=== PATIENT | male | born 1980 | race American Indian/Alaskan Native ===

== ENCOUNTER 2016-10-11 17:33 | Inpatient (IN) | payer MEDICAID, SELFPAY ==
[2016-10-11] MEDS ORDERED: Promethazine 25 MG/ML SDV IM PRN (19:21)
[2016-10-11] MEDS ORDERED: Ondansetron 4 MG/2 ML SDV IVPUSH PRN (19:21)
[2016-10-11] MEDS ORDERED: Zolpidem 5 MG Tab PO PRN (19:21)
--- NOTE | 2016-10-11 19:37 | PCM.HP ---
H&P History of Present Illness - General Date of Service: 10/11/16 Admit Problem/Dx: Admission Diagnosis/Problem Admission Diagnosis/Problem Colitis Source of Information: Patient History Limitations: Reports: No limitations - History of Present Illness Initial Comments - Free Text/Narative: 36-year-old male with past medical history of chewing tobacco and smoking marijuana presented from the clinic for having generalized abdominal pain for the last 5 days. pain is moderate, colicky, nonradiating, constant, nothing mixed worse or better.Other symptoms are nausea but no vomiting, watery diarrhea. He stated that he gets 7-8 episodes of diarrhea that has some blood and mucus in it. He has been feeling warm and cold. His temperature at the clinic was 100.6 Fahrenheit. patient denies similar abdomen pain in the past. He denies recent travel or antibiotic or NSAIDS intake. he denies chronic disease. He denies any personal or family history of peptic ulcer, Crohn disease , ulcers colitis, GI cancer, or any chronic GI disease. at the clinic his WBC 19.20 with left shift. Hemoglobin 14.4. sodium 136. Potassium 3.8. Random glucose 120. Creatinine 0.9. Alkaline phosphatase is 116. AST 12. ALT 17. Bilirubin 0.5. CT of abdomen and pelvis was done in the clinic and per report: 1.*Uniformly, abnormally, thickened distal large bowel wall (rectum and sigmoid colon with associated mesenteric lymphadenitis). Colitis probable diagnosis. Clinical ulcerative colitis? 2. Normal appendix identified in the right lower quadrant. 3. Gallbladder unremarkable. Normal liver, stomach, spleen, pancreas and adrenal glands. 4. Normal reniform sinus, axis and configuration bilateral. No sign of renal cortical mass lesion, nephrolithiasis or obstructive uropathy. Urinary bladder unremarkable. Normal prostate gland. 5. Normal caliber aortoiliac vessels. Lumbar spine unremarkable. Lung bases are clear. 6. No pelvic or abdominal mass lesion, sign of retroperitoneal lymphadenopathy, mechanical bowel obstruction, ascites or free intraperitoneal air. Conclusion: Active colitis - Related Data Allergies/Adverse Reactions: Allergies Allergy/AdvReac Type Severity Reaction Status Date / Time codeine Allergy Rash Verified 10/11/16 18:31 Home Medications: Home Meds . [No Known Home Meds] 10/11/16 [History] Past Medical History - Past Health History Medical/Surgical History: Denies Medical/Surgical History Social & Family History - Tobacco Use Smoking Status *Q: Current Every Day Smoker Years of Tobacco use: 20 Packs/Tins Daily: 0.5 Used Tobacco, but Quit: No Second Hand Smoke Exposure: Yes - Caffeine Use Caffeine Use: Reports: Coffee, Soda - Alcohol Use Days Per Week of Alcohol Use: 0 - Recreational Drug Use Recreational Drug Use: Yes Drug Use in Last 12 Months: Yes Recreational Drug Type: Reports: Marijuana/Hashish Recreational Drug Use Frequency: Monthly H&P Review of Systems - Review of Systems: Review Of Systems: See Below Free Text/Narrative: 10 point review of systems is otherwise negative except as mentioned above Exam - Exam Exam: See Below - Vital Signs Vital Signs: Last Vital Signs Temp 37.2 C 10/11/16 17:33 Pulse 94 10/11/16 17:33 Resp 16 10/11/16 17:33 BP 134/90 10/11/16 17:33 Pulse Ox 100 10/11/16 17:33 Weight: 65.862 kg - Exam General: alert, oriented, cooperative, mild distress. No: severe distress, sedated, lethargic, obtunded HEENT: Conjunctiva clear, EACs clear, EOMI, Hearing intact, Mucosa moist & pink , Nares patent, Normal nasal septum, Posterior pharynx clear, Pupils equal, Pupils reactive, TMs clear Neck: supple, trachea midline Lungs: Clear to auscultation, Normal respiratory effort Cardiovascular: regular rate, regular rhythm Abdomen: soft, tenderness (generalized). No: organomegaly, peritoneal signs, distention, guarding, rigidity, rebound, absent bowel sounds, hepatomegaly, splenomegaly, mass, McBurney's sign, psoas sign, obturator sign, Rovsing's sign , Oneil's sign, aortic pulsation (Male) Exam: No hernia, Deferred Extremities: normal inspection, normal pulses. No: clubbing, cyanosis, calf tenderness Skin: warm, dry, intact Neurological: cranial nerves intact, reflexes equal bilateral Neuro Extensive - Mental Status: alert, oriented x3, normal mood/affect, normal cognition, memory intact Neuro Extensive - Motor, Sensory, Reflexes: CN II-XII intact, normal gait, normal reflexes Psychiatric: alert, normal affect, normal mood. No: suicidal ideation, homicidal ideation, hallucinations *Q Meaningful Use (ADM) - VTE *Q VTE Criteria *Q: - Stroke *Q Stroke Criteria *Q: - AMI *Q AMI Criteria *Q: - Problem List (1) Colitis SNOMED Code(s): 97560725 ICD Code: K52.9 - NONINFECTIVE GASTROENTERITIS AND COLITIS, UNSPECIFIED Status: Acute Current Visit: Yes (2) SIRS (systemic inflammatory response syndrome) SNOMED Code(s): 904999645 ICD Code: R65.10 - SIRS OF NON-INFECTIOUS ORIGIN W/O ACUTE ORGAN DYSFUNCTION Status: Acute Current Visit: Yes (3) Tobacco abuse SNOMED Code(s): 141471193, 668228913 ICD Code: Z72.0 - TOBACCO USE Status: Acute Current Visit: Yes (4) Marijuana abuse SNOMED Code(s): 77646276 ICD Code: F12.10 - CANNABIS ABUSE, UNCOMPLICATED Status: Acute Current Visit: Yes Problem List Initiated/Reviewed/Updated: Yes Orders Last 24hrs: Active Orders 24 hr Category Date Time Status Patient Status [ADT] Routine ADT 10/11/16 19:21 Ordered Communication Order [RC] ROUTINE Care 10/11/16 19:21 Ordered Intake and Output [RC] Q8H Care 10/11/16 19:22 Ordered Oxygen Therapy [RC] PRN Care 10/11/16 19:21 Ordered Peripheral IV Care [RC] . DIRECTED Care 10/11/16 19:23 Ordered Up ad Tina [RC] ASDIRECTED Care 10/11/16 19:21 Ordered VTE/DVT Education [RC] PER UNIT ROUTINE Care 10/11/16 19:21 Ordered Vital Signs [RC] Q4H Care 10/11/16 19:21 Ordered Nothing per Oral Now Diet [DIET] Diet 10/11/16 Breakfast Ordered BASIC METABOLIC PANEL,BMP [CHEM] AM Lab 10/12/16 05:11 Ordered C-REACTIVE PROTEIN [REF] DAILY Lab 10/11/16 19:30 Ordered CBC WITH AUTO DIFF [HEME] AM Lab 10/12/16 05:11 Ordered CULTURE STOOL [RM] Routine Lab 10/11/16 18:40 Uncollected DRUG SCREEN, URINE [URCHEM] Routine Lab 10/11/16 18:44 Uncollected Acetaminophen/HYDROcodone [[place] 325-10 MG] Med 10/11/16 19:21 Ordered 1 tab PO Q4H PRN Ciprofloxacin in D5W [Cipro in D5W 400 MG/200 ML] 400 Med 10/11/16 21:00 Ordered mg Premix Bag 1 bag IV Q12HR Enoxaparin [Lovenox] Med 10/12/16 09:00 Ordered 30 mg SUBCUT DAILY Morphine Med 10/11/16 19:21 Ordered 2 mg IVPUSH Q2H PRN Ondansetron [Zofran] Med 10/11/16 19:21 Ordered 4 mg IVPUSH Q6H PRN Promethazine [Phenergan] Med 10/11/16 19:21 Ordered 12.5 mg IM Q6H PRN Sodium Chloride 0.9% [Normal Saline] 1,000 ml Med 10/11/16 19:30 Ordered IV ASDIRECTED Sodium Chloride 0.9% [Saline Flush] Med 10/11/16 19:21 Ordered 10 ml FLUSH ASDIRECTED PRN Zolpidem [Ambien] Med 10/11/16 19:21 Ordered 5 mg PO BEDTIME PRN metroNIDAZOLE/Normal Saline [Flagyl 500 MG in NS 100 ML Med 10/11/16 19:30 Ordered ] 500 mg Premix Bag 100 bag IV Q8H Peripheral IV Insertion Adult [OM.PC] Routine Oth 10/11/16 19:21 Ordered Resuscitation Status Routine Resus Stat 10/11/16 19:21 Ordered Assessment/Plan Comment:: Acute colitis, Active colitis per CAT scan of the abdomen/pelvis --Will do stool culture and start ciprofloxacin and Flagyl IV --N.p.o. for diet but okay for sips and chips --IV fluid infusion at 150 cc per hour after receiving 2 L of normal senna as a bolus He was advised that he needs to followup with GI specialist after discharge for possible colonoscopy systemic inflammatory response syndrome Possible sepsis --check lactic acid 2 L of normal saline as a bolus to be given Abdomen pain, from colitis Morphine as needed Nausea, from colitis Antiemetic as needed tobacco abuse and marijuana abuse He was counseled about quitting in seeking outpatient counseling Patient is full code SCDs DVT prophylaxis. avoids pharmaceutical DVT prophylaxis at this time due to having blood in the stool
[2016-10-11] MEDS: Sodium Chloride 0.9% 2,000 ML IV ONE ×2 (19:49→21:53)
[2016-10-11] MEDS: Morphine 2 MG/ML Syringe IVPUSH PRN ×2 (20:21→23:08)
[2016-10-11] MEDS: metroNIDAZOLE/Normal Saline 500 MG in Premix Bag 100 BAG IV SCH (20:26)
[2016-10-11] MEDS: Acetaminophen/HYDROcodone 325-10 MG Tab PO PRN (21:54)
[2016-10-11] MEDS: Ciprofloxacin in D5W 400 MG in Premix Bag 1 BAG IV SCH ×2 (21:55)
[2016-10-11] MEDS: Sodium Chloride 0.9% 1,000 ML IV SCH (23:01)
[2016-10-12] MEDS: metroNIDAZOLE/Normal Saline 500 MG in Premix Bag 100 BAG IV SCH ×2 (03:23→11:47)
[2016-10-12] MEDS: Sodium Chloride 0.9% 1,000 ML IV SCH (06:47)
[2016-10-12] MEDS: Morphine 2 MG/ML Syringe IVPUSH PRN ×5 (06:51→21:41)
[2016-10-12 06:57] LABS: CHLORIDE,CL 107 mmol/L (101-111); SODIUM,NA 138 mmol/L (135-145)
[2016-10-12] MEDS ORDERED: Potassium Chloride 10 MEQ Tab.ER PO ONE (08:25)
[2016-10-12] MEDS ORDERED: Enoxaparin 30 MG/0.3 ML Syringe SUBCUT SCH (09:00)
[2016-10-12] MEDS: Acetaminophen/HYDROcodone 325-10 MG Tab PO PRN ×4 (09:36→23:57)
[2016-10-12] MEDS: Dextrose 5%-0.9% NaCl with KCl 1,000 ML IV SCH ×2 (09:38→21:08)
[2016-10-12] MEDS: Ciprofloxacin in D5W 400 MG in Premix Bag 1 BAG IV SCH ×4 (09:38→21:17)
--- NOTE | 2016-10-12 10:57 | PCM.PN ---
- General Info Date of Service: 10/12/16 Admission Dx/Problem (Free Text): Admission Diagnosis/Problem Admission Diagnosis/Problem Colitis Subjective Update: patient states that he is feeling the same. However he denies nausea or vomiting since admission. He is still having abdominal pain and diarrhea. He had 4 episodes of diarrhea since yesterday. He denies fever or chills, shortness of breath, urinary symptoms, or any other symptoms. - Patient Data Vitals - most recent: Last Vital Signs Temp 36.7 C 10/12/16 10:35 Pulse 83 10/12/16 10:35 Resp 16 10/12/16 10:35 BP 119/69 10/12/16 10:35 Pulse Ox 100 10/12/16 10:35 Weight - most recent: 65.862 kg I&O - last 24 hours: Intake & Output 10/11/16 10/12/16 10/12/16 22:59 06:59 14:59 Intake Total 2300 1182 Balance 2300 1182 Lab Results last 24 hrs: Laboratory Results - last 24 hr 10/11/16 10/11/16 10/11/16 Range/Units 19:45 20:05 23:15 WBC (5.0-10.0) 10^3/uL RBC (4.6-6.2) 10^6/uL Hgb (14.0-18.0) g/dL Hct (40.0-54.0) % MCV (80-100) fL MCH (27.0-34.0) pg MCHC (33.0-35.0) g/dL Plt Count (150-450) 10^3/uL Neut % (Auto) (42.2-75.2) % Lymph % (Auto) (20.5-50.1) % Greenlee % (Auto) (2-8) % Eos % (Auto) (1.0-3.0) % Baso % (Auto) (0.0-1.0) % Sodium (135-145) mmol/L Potassium (3.6-5.0) mmol/L Chloride (101-111) mmol/L Carbon Dioxide (21.0-31.0) mmol/L Anion Gap BUN (7-18) mg/dL Creatinine (0.6-1.3) mg/dL Est Cr Clr Drug Dosing mL/min Estimated GFR (MDRD) Glucose (74-105) mg/dL Lactic Acid 0.8 0.5 (0.5-2.2) mmol/L Calcium (8.4-10.2) mg/dl C-Reactive Protein 20.0 H (0.0-1.3) mg/dL 10/12/16 10/12/16 Range/Units 06:20 06:20 WBC 11.1 H (5.0-10.0) 10^3/uL RBC 4.29 L (4.6-6.2) 10^6/uL Hgb 12.5 L (14.0-18.0) g/dL Hct 37.6 L (40.0-54.0) % MCV 87.6 (80-100) fL MCH 29.1 (27.0-34.0) pg MCHC 33.2 (33.0-35.0) g/dL Plt Count 302 (150-450) 10^3/uL Neut % (Auto) 72.9 (42.2-75.2) % Lymph % (Auto) 12.3 L (20.5-50.1) % Greenlee % (Auto) 11.8 H (2-8) % Eos % (Auto) 2.6 (1.0-3.0) % Baso % (Auto) 0.4 (0.0-1.0) % Sodium 138 (135-145) mmol/L Potassium 3.5 L (3.6-5.0) mmol/L Chloride 107 (101-111) mmol/L Carbon Dioxide 24.0 (21.0-31.0) mmol/L Anion Gap 10.5 BUN 9 (7-18) mg/dL Creatinine 0.8 (0.6-1.3) mg/dL Est Cr Clr Drug Dosing 118.92 mL/min Estimated GFR (MDRD) > 60 Glucose 98 (74-105) mg/dL Lactic Acid (0.5-2.2) mmol/L Calcium 7.9 L (8.4-10.2) mg/dl C-Reactive Protein (0.0-1.3) mg/dL Med Orders - Current: Current Medications Hydrocodone Bitart/Acetaminophen ([place] 325-10 Mg) 1 tab PO Q4H PRN PRN Reason: Pain (moderate 4-6) Last Admin: 10/12/16 09:36 Dose: 1 tab Ciprofloxacin/Dextrose 400 mg/ (Premix) 200 mls @ 200 mls/hr IV Q12HR [facility] Last Admin: 10/12/16 09:38 Dose: 200 mls/hr Metronidazole 500 mg/ Premix 100 mls @ 100 mls/hr IV Q8H [facility] Last Infusion: 10/12/16 04:30 Dose: Infused Potassium Chloride/Dextrose/Sod Cl (D5 Ns With 20 Meq Kcl) 1,000 mls @ 150 mls/ hr IV ASDIRECTED [facility] Last Admin: 10/12/16 09:38 Dose: 150 mls/hr Morphine Sulfate (Morphine) 2 mg IVPUSH Q2H PRN PRN Reason: Pain (severe 7-10) Last Admin: 10/12/16 06:51 Dose: 2 mg Ondansetron HCl (Zofran) 4 mg IVPUSH Q6H PRN PRN Reason: Nausea/Vomiting Last Admin: 10/11/16 21:50 Dose: 4 mg Promethazine HCl (Phenergan) 12.5 mg IM Q6H PRN PRN Reason: Nausea/Vomiting Sodium Chloride (Saline Flush) 10 ml FLUSH ASDIRECTED PRN PRN Reason: Keep Vein Open Zolpidem Tartrate (Ambien) 5 mg PO BEDTIME PRN PRN Reason: Sleep Discontinued Medications Enoxaparin Sodium (Lovenox) 30 mg SUBCUT DAILY [facility] Sodium Chloride (Normal Saline) 1,000 mls @ 150 mls/hr IV ASDIRECTED [facility] Last Admin: 10/12/16 06:47 Dose: 150 mls/hr Sodium Chloride (Normal Saline) 2,000 mls @ 999 mls/hr IV .BOLUS ONE Stop: 10/11/16 21:53 Last Infusion: 10/11/16 23:02 Dose: Infused Potassium Chloride (Klor-Con 10) 40 meq PO ONETIME ONE Stop: 10/12/16 08:26 Last Admin: 10/12/16 09:35 Dose: 40 meq - Exam General: alert, oriented, cooperative, other (he looks better than yesterday). No: no acute distress, sedated, lethargic, obtunded HEENT: Pupils equal, Pupils reactive, EOMI, Mucous membr. moist/pink Neck: supple, trachea midline, no JVD Lungs: Clear to auscultation, Normal respiratory effort Cardiovascular: Regular Rate, Regular Rhythm Abdomen: soft, no distension, tenderness (generalized, less intense than yesterday), abnormal bowel sounds (hyperactive). No: rigidity, rebound, guarding, distension, CVA tenderness, organomegaly (Male) Exam: Deferred Back Exam: normal inspection, full range of motion Extremities: no edema, normal pulses, no tenderness/swelling, no clubbing, no cyanosis Skin: warm, dry, intact Neurological: no new focal deficit Psy/Mental Status: alert, normal affect, normal mood. No: suicidal ideation, homicidal ideation, hallucinations - Problem List & Annotations (1) Colitis SNOMED Code(s): 11636417 Code(s): K52.9 - NONINFECTIVE GASTROENTERITIS AND COLITIS, UNSPECIFIED Status: Acute Current Visit: Yes (2) SIRS (systemic inflammatory response syndrome) SNOMED Code(s): 041199503 Code(s): R65.10 - SIRS OF NON-INFECTIOUS ORIGIN W/O ACUTE ORGAN DYSFUNCTION Status: Acute Current Visit: Yes (3) Tobacco abuse SNOMED Code(s): 416696790, 657132416 Code(s): Z72.0 - TOBACCO USE Status: Acute Current Visit: Yes (4) Marijuana abuse SNOMED Code(s): 21106560 Code(s): F12.10 - CANNABIS ABUSE, UNCOMPLICATED Status: Acute Current Visit: Yes - Problem List Review Problem List Initiated/Reviewed/Updated: Yes - My Orders Last 24 Hours: My Active Orders 10/11/16 18:44 DRUG SCREEN, URINE [URCHEM] Routine 10/11/16 19:21 Patient Status [ADT] Routine Oxygen Therapy [RC] .PRN Up ad Tina [RC] ASDIRECTED VTE/DVT Education [RC] 08,20 Vital Signs [RC] 03,07,11,15,19,23 Acetaminophen/HYDROcodone [[place] 325-10 MG] 1 tab PO Q4H PRN Morphine 2 mg IVPUSH Q2H PRN Ondansetron [Zofran] 4 mg IVPUSH Q6H PRN Promethazine [Phenergan] 12.5 mg IM Q6H PRN Sodium Chloride 0.9% [Saline Flush] 10 ml FLUSH ASDIRECTED PRN Zolpidem [Ambien] 5 mg PO BEDTIME PRN Peripheral IV Insertion Adult [OM.PC] Routine Resuscitation Status Routine 10/11/16 19:22 Intake and Output [RC] Q8H 10/11/16 19:23 Peripheral IV Care [RC] 08,20 10/11/16 19:30 CULTURE STOOL [RM] Routine SHIGA TOXIN 1 & 2 [MREF] Routine metroNIDAZOLE/Normal Saline [Flagyl 500 MG in NS 100 ML] 500 mg Premix Bag 100 bag IV Q8H 10/11/16 19:47 SCD [Sequential Compression Device] [OM.PC] Routine 10/11/16 19:48 Antiembolic Devices [RC] PER UNIT ROUTINE Blood Culture x2 Reflex Set [OM.PC] Stat 10/11/16 19:58 Communication Order [RC] ROUTINE 10/11/16 20:05 CULTURE BLOOD [BC] Stat 10/11/16 20:10 CULTURE BLOOD [BC] Stat 10/11/16 21:00 Ciprofloxacin in D5W [Cipro in D5W 400 MG/200 ML] 400 mg Premix Bag 1 bag IV Q12HR 10/12/16 08:30 Dextrose 5%-0.9% NaCl with KCl [D5 NS with 20 mEq KCl] 1,000 ml IV ASDIRECTED 10/13/16 05:11 BASIC METABOLIC PANEL,BMP [CHEM] Routine C-REACTIVE PROTEIN [CHEM] Routine CBC WITH AUTO DIFF [HEME] Routine - Plan Plan:: Acute colitis, possible infectious Active colitis per CAT scan of the abdomen/pelvis received 2 L of normal senna as a bolus on admission --awaiting stool culture and C. difficile testing results --continue ciprofloxacin and Flagyl IV --continue N.p.o. for diet but okay for sips and chips --IV fluid infusion at 150 cc per He was advised that he needs to followup with GI specialist after discharge for possible colonoscopy Systemic inflammatory response syndrome Possible sepsis from acute colitis CRP is 20.0 on admission initial lactic acid is normal 2 L of normal saline as a bolus to be given awaiting stool culture, blood culture, C. difficile testing results Flagyl and Cipro IV Hypokalemia Replace orally Dental caries was possible dental infection Patient stated that he had dental pain and gum swelling in the left upper jaw. Symptoms resolved days ago. On exam of his molar has caries but no signs of dental abscess. I believe Flagyl and Cipro are good choice for possible dental infection Abdomen pain, from colitis Morphine as needed Nausea, from colitis Antiemetic as needed tobacco abuse and marijuana abuse He was counseled about quitting in seeking outpatient counseling Patient is full code SCDs DVT prophylaxis. avoids pharmaceutical DVT prophylaxis at this time due to having blood in the stool
[2016-10-12] MEDS ORDERED: metroNIDAZOLE/Normal Saline 500 MG in Premix Bag 1 BAG IV SCH (12:08)
[2016-10-12] MEDS: metroNIDAZOLE/Normal Saline 500 MG in Premix Bag 1 BAG IV SCH (20:05)
[2016-10-12] MEDS: Sodium Chloride 0.9% 10 ML Syringe FLUSH PRN ×2 (21:40→21:50)
[2016-10-13] MEDS: metroNIDAZOLE/Normal Saline 500 MG in Premix Bag 1 BAG IV SCH ×3 (04:07→20:15)
[2016-10-13 06:44] LABS: CHLORIDE,CL 106 mmol/L (101-111); SODIUM,NA 138 mmol/L (135-145)
[2016-10-13] MEDS: Dextrose 5%-0.9% NaCl with KCl 1,000 ML IV SCH ×2 (06:53→16:37)
[2016-10-13] MEDS: Acetaminophen/HYDROcodone 325-10 MG Tab PO PRN ×4 (07:26→21:48)
[2016-10-13] MEDS: Ciprofloxacin in D5W 400 MG in Premix Bag 1 BAG IV SCH ×4 (09:06→21:34)
--- NOTE | 2016-10-13 10:33 | PCM.PN ---
- General Info Date of Service: 10/13/16 Admission Dx/Problem (Free Text): Admission Diagnosis/Problem Admission Diagnosis/Problem Colitis with Diarrhea multiples in a day Subjective Update: patient states that he is feeling the same. However he denies nausea or vomiting since admission. He is still having abdominal pain and diarrhea. He had 2-3 episodes of diarrhea last night. He denies fever or chills, shortness of breath, urinary symptoms, or any other symptoms. Functional Status: Reports: pain controlled, ambulating, urinating, other - Review of Systems General: Reports: Weakness, Other (NPO). Denies: Malaise, Chills HEENT: Denies: ear pain, headaches, sinus congestion, visual changes Pulmonary: Denies: shortness of breath, pleuritic chest pain, cough, sputum, wheezing Cardiovascular: Denies: Chest Pain, Lightheadedness Gastrointestinal: Reports: Abdominal pain, Diarrhea. Denies: Nausea, Vomiting Genitourinary: Denies: dysuria, burning, urgency, hematuria, flank pain Musculoskeletal: Denies: neck pain, shoulder pain Skin: Denies: cyanosis, jaundice, bruising, rash Neurological: Denies: Confusion, Headache Psychiatric: Reports: no symptoms - Patient Data Vitals - most recent: Last Vital Signs Temp 36.6 C 10/13/16 07:00 Pulse 64 10/13/16 07:00 Resp 18 10/13/16 07:00 BP 102/72 10/13/16 07:00 Pulse Ox 98 10/13/16 07:00 Weight - most recent: 65.862 kg I&O - last 24 hours: Intake & Output 10/12/16 10/13/16 10/13/16 22:59 06:59 14:59 Intake Total 2388 1100 Output Total 750 Balance 1638 1100 Lab Results last 24 hrs: Laboratory Results - last 24 hr 10/12/16 10/13/16 10/13/16 Range/Units 17:15 05:50 05:50 WBC 5.4 (5.0-10.0) 10^3/uL RBC 4.11 L (4.6-6.2) 10^6/uL Hgb 11.9 L (14.0-18.0) g/dL Hct 36.4 L (40.0-54.0) % MCV 88.6 (80-100) fL MCH 29.0 (27.0-34.0) pg MCHC 32.7 L (33.0-35.0) g/dL Plt Count 349 (150-450) 10^3/uL Neut % (Auto) 45.9 (42.2-75.2) % Lymph % (Auto) 30.0 (20.5-50.1) % Guthrie % (Auto) 16.6 H (2-8) % Eos % (Auto) 6.8 H (1.0-3.0) % Baso % (Auto) 0.7 (0.0-1.0) % Sodium (135-145) mmol/L Potassium (3.6-5.0) mmol/L Chloride (101-111) mmol/L Carbon Dioxide (21.0-31.0) mmol/L Anion Gap BUN (7-18) mg/dL Creatinine (0.6-1.3) mg/dL Est Cr Clr Drug Dosing mL/min Estimated GFR (MDRD) Glucose (74-105) mg/dL Calcium (8.4-10.2) mg/dl C-Reactive Protein 7.4 H (0.0-1.3) mg/dL Urine Opiates Screen Positive H (NEGATIVE) Ur Oxycodone Screen Negative (NEGATIVE) Urine Methadone Screen Negative (NEGATIVE) Ur Barbiturates Screen Negative (NEGATIVE) U Tricyclic Antidepress Negative (NEGATIVE) Ur Phencyclidine Scrn Negative (NEGATIVE) Ur Amphetamine Screen Positive H (NEGATIVE) U Methamphetamines Scrn Positive H (NEGATIVE) Urine MDMA Screen Negative (NEGATIVE) U Benzodiazepines Scrn Negative (NEGATIVE) Urine Cocaine Screen Negative (NEGATIVE) U Marijuana (THC) Screen Negative (NEGATIVE) 10/13/16 Range/Units 05:50 WBC (5.0-10.0) 10^3/uL RBC (4.6-6.2) 10^6/uL Hgb (14.0-18.0) g/dL Hct (40.0-54.0) % MCV (80-100) fL MCH (27.0-34.0) pg MCHC (33.0-35.0) g/dL Plt Count (150-450) 10^3/uL Neut % (Auto) (42.2-75.2) % Lymph % (Auto) (20.5-50.1) % Guthrie % (Auto) (2-8) % Eos % (Auto) (1.0-3.0) % Baso % (Auto) (0.0-1.0) % Sodium 138 (135-145) mmol/L Potassium 3.8 (3.6-5.0) mmol/L Chloride 106 (101-111) mmol/L Carbon Dioxide 26.0 (21.0-31.0) mmol/L Anion Gap 9.8 BUN 7 (7-18) mg/dL Creatinine 0.6 (0.6-1.3) mg/dL Est Cr Clr Drug Dosing 158.56 mL/min Estimated GFR (MDRD) > 60 Glucose 116 H (74-105) mg/dL Calcium 7.9 L (8.4-10.2) mg/dl C-Reactive Protein (0.0-1.3) mg/dL Urine Opiates Screen (NEGATIVE) Ur Oxycodone Screen (NEGATIVE) Urine Methadone Screen (NEGATIVE) Ur Barbiturates Screen (NEGATIVE) U Tricyclic Antidepress (NEGATIVE) Ur Phencyclidine Scrn (NEGATIVE) Ur Amphetamine Screen (NEGATIVE) U Methamphetamines Scrn (NEGATIVE) Urine MDMA Screen (NEGATIVE) U Benzodiazepines Scrn (NEGATIVE) Urine Cocaine Screen (NEGATIVE) U Marijuana (THC) Screen (NEGATIVE) [place] Results last 24 hrs: Microbiology 10/11/16 19:30 Clostridium difficile (PCR) - Final Stool / Feces 10/11/16 19:30 Stool Culture - Preliminary Other - Stool, Liquid NORMAL ENTERIC CATERINA. NO SALMONELLA, SHIGELLA, CAMPYLOBACTER OR E.COLI O157 ISOLATED. 10/11/16 19:30 Shiga Toxin I & II - Final Stool / Feces 10/11/16 20:10 Aerobic Blood Culture - Preliminary Blood - Venous - Lab Draw NO GROWTH AFTER 1 DAY Anaerobic Blood Culture - Preliminary NO GROWTH AFTER 1 DAY 10/11/16 20:05 Aerobic Blood Culture - Preliminary Blood - Venous NO GROWTH AFTER 1 DAY Anaerobic Blood Culture - Preliminary NO GROWTH AFTER 1 DAY Med Orders - Current: Current Medications Hydrocodone Bitart/Acetaminophen ([place] 325-10 Mg) 1 tab PO Q4H PRN PRN Reason: Pain (moderate 4-6) Last Admin: 10/13/16 07:26 Dose: 1 tab Ciprofloxacin/Dextrose 400 mg/ (Premix) 200 mls @ 200 mls/hr IV Q12HR [facility] Last Admin: 10/12/16 21:17 Dose: 200 mls/hr Potassium Chloride/Dextrose/Sod Cl (D5 Ns With 20 Meq Kcl) 1,000 mls @ 150 mls/ hr IV ASDIRECTED [facility] Last Admin: 10/13/16 06:53 Dose: 150 mls/hr Metronidazole 500 mg/ Premix 100 mls @ 100 mls/hr IV Q8H [facility] Last Admin: 10/13/16 04:07 Dose: 100 mls/hr Morphine Sulfate (Morphine) 2 mg IVPUSH Q2H PRN PRN Reason: Pain (severe 7-10) Last Admin: 10/12/16 21:41 Dose: 2 mg Ondansetron HCl (Zofran) 4 mg IVPUSH Q6H PRN PRN Reason: Nausea/Vomiting Last Admin: 10/11/16 21:50 Dose: 4 mg Promethazine HCl (Phenergan) 12.5 mg IM Q6H PRN PRN Reason: Nausea/Vomiting Sodium Chloride (Saline Flush) 10 ml FLUSH ASDIRECTED PRN PRN Reason: Keep Vein Open Last Admin: 10/12/16 21:50 Dose: 10 ml Zolpidem Tartrate (Ambien) 5 mg PO BEDTIME PRN PRN Reason: Sleep Discontinued Medications Enoxaparin Sodium (Lovenox) 30 mg SUBCUT DAILY [facility] Sodium Chloride (Normal Saline) 1,000 mls @ 150 mls/hr IV ASDIRECTED [facility] Last Admin: 10/12/16 06:47 Dose: 150 mls/hr Metronidazole 500 mg/ Premix 100 mls @ 100 mls/hr IV Q8H [facility] Last Infusion: 10/12/16 13:08 Dose: Infused Sodium Chloride (Normal Saline) 2,000 mls @ 999 mls/hr IV .BOLUS ONE Stop: 10/11/16 21:53 Last Infusion: 10/11/16 23:02 Dose: Infused Metronidazole 500 mg/ Premix 100 mls @ 100 mls/hr IV Q8H [facility] Last Admin: 10/12/16 14:01 Dose: Not Given Potassium Chloride (Klor-Con 10) 40 meq PO ONETIME ONE Stop: 10/12/16 08:26 Last Admin: 10/12/16 09:35 Dose: 40 meq - Exam Quality Assessment: DVT prophylaxis. No: supplemental oxygen, urine catheter General: alert, oriented, cooperative, no acute distress HEENT: Pupils equal, Mucous membr. moist/pink Neck: supple, no thyromegaly. No: lymphadenopathy Lungs: Clear to auscultation, Normal respiratory effort Cardiovascular: Regular Rate, Regular Rhythm Abdomen: bowel sounds present, soft, no distension, rebound, guarding, tenderness (rt upper quadrant) (Male) Exam: Deferred Back Exam: normal inspection, full range of motion Extremities: no edema, no clubbing, no calf tenderness Skin: warm, dry, intact Neurological: no new focal deficit, normal speech Psy/Mental Status: alert, normal affect, normal mood - Problem List Review Problem List Initiated/Reviewed/Updated: Yes - Plan Plan:: Acute colitis, Secondary to C.Diff Active colitis per CAT scan of the abdomen/pelvis -stool culture negative ( Normal enteric caterina, No salmonella, Positive C. difficile toxin -continue ciprofloxacin and Flagyl IV --continue N.p.o. for diet but okay for sips and chips --IV fluid infusion D5 NS with potassium at 150 cc per - He was advised that he needs to followup with GI specialist after discharge for possible colonoscopy Systemic inflammatory response syndrome Possible sepsis from acute colitis CRP is 20.0 on admission initial lactic acid is normal -C. difficile positive -continue Flagyl and Cipro IV Hypokalemia Replace in iv fluids Dental caries was possible dental infection Patient stated that he had dental pain and gum swelling in the left upper jaw. Symptoms resolved days ago. On exam of his molar has caries but no signs of dental abscess. - Flagyl and Cipro are good choice for possible dental infection Abdomen pain, from colitis -continue Morphine as needed Nausea, from colitis - continue Antiemetic as needed tobacco abuse and marijuana abuse He was counseled about quitting in seeking outpatient counseling Patient is full code SCDs DVT prophylaxis. avoids pharmaceutical DVT prophylaxis at this time due to having blood in the stool
[2016-10-13] MEDS: Morphine 2 MG/ML Syringe IVPUSH PRN (15:23)
[2016-10-14] MEDS: Dextrose 5%-0.9% NaCl with KCl 1,000 ML IV SCH ×2 (01:37→09:27)
[2016-10-14] MEDS: metroNIDAZOLE/Normal Saline 500 MG in Premix Bag 1 BAG IV SCH ×2 (04:04→11:43)
[2016-10-14] MEDS: Ciprofloxacin in D5W 400 MG in Premix Bag 1 BAG IV SCH ×2 (09:26)
[2016-10-14] MEDS: Acetaminophen/HYDROcodone 325-10 MG Tab PO PRN (09:29)
--- NOTE | 2016-10-14 09:41 | PCM.DCSUM1 ---
Discharge Summary - Hospital Course Free Text/Narrative:: Pt feels better today, had no more BM over the night, No abdominal pain, No nausea or vomiting HPI Initial Comments: This is a 36-year-old male with past medical history of chewing tobacco and smoking marijuana presented from the [facility] with generalized abdominal pain for the last 5 days. pain is moderate, colicky, nonradiating, constant, nothing mixes worse or better.Other symptoms are nausea but no vomiting, watery diarrhea. He stated that he gets 7-8 episodes of diarrhea that has some blood and mucus in it. His temperature at the clinic was 100.6 Fahrenheit. He denies recent travel or antibiotic or NSAIDS intake. his labs showed WBC 19.20 with left shift. Hemoglobin 14.4. sodium 136. Potassium 3.8. Random glucose 120. Creatinine 0.9. Alkaline phosphatase is 116. AST 12. ALT 17. Bilirubin 0.5. His stool cultute was negative fot salmonella, bacteria, E. Coli 0157 but it was positive for C.Diff and Treated with IV Metronidazole, he is feeling good and tolerating oral diet. - Discharge Data Discharge Date: 10/14/16 Discharge Disposition: Home, Self-Care 01 Condition: Good - Discharge Diagnosis/Problem(s) (1) C. difficile colitis SNOMED Code(s): 745206007 ICD Code: A04.7 - ENTEROCOLITIS DUE TO CLOSTRIDIUM DIFFICILE Status: Acute Current Visit: Yes (2) Colitis SNOMED Code(s): 23521183 ICD Code: K52.9 - NONINFECTIVE GASTROENTERITIS AND COLITIS, UNSPECIFIED Status: Acute Current Visit: Yes (3) Marijuana abuse SNOMED Code(s): 52712969 ICD Code: F12.10 - CANNABIS ABUSE, UNCOMPLICATED Status: Acute Current Visit: Yes (4) Tobacco abuse SNOMED Code(s): 660019720, 315826464 ICD Code: Z72.0 - TOBACCO USE Status: Acute Current Visit: Yes - Patient Instructions Diet: Regular Diet as Tolerated Activity: As Tolerated Driving: May Drive Today Showering/Bathing: May Shower Other/Special Instructions: Pt will be discharge today and will get back to regular diet. Advise to stay away from drugs and Follow with PMD in a week time. He will go home on oral Metronidazole 500 mg TID X 13 days.Do not consume Alcohol or other recreational drugs while taking Metronidazole - Discharge Plan Prescriptions/Med Rec: Metronidazole [IJD: metroNIDAZOLE] 500 mg PO .EVERY 8 HOURS #39 tab Home Medications: Home Meds Metronidazole [IJD: metroNIDAZOLE] 500 mg PO .EVERY 8 HOURS #39 tab 10/14/16 [Rx ] Patient Handouts: Colitis - Discharge Summary/Plan Comment DC Time >30 min.: Yes - General Info Date of Service: 10/14/16 Admission Dx/Problem (Free Text: Admission Diagnosis/Problem Admission Diagnosis/Problem Colitis with Diarrhea multiple times a day Subjective Update: patient is feeling better today,he denies nausea or vomiting abdominal pain and had no more diarrhea.over the night. He denies fever or chills, shortness of breath, urinary symptoms, or any other symptoms. He is tolerating oral regular diet Functional Status: Reports: pain controlled, tolerating diet, ambulating, urinating - Review of Systems General: Reports: Appetite (good). Denies: Fever, Chills HEENT: Denies: headaches, sinus congestion, sore throat Pulmonary: Denies: shortness of breath, pleuritic chest pain, cough, sputum, hemoptysis, wheezing Cardiovascular: Denies: Chest Pain, Orthopnea, Lightheadedness Gastrointestinal: Denies: Abdominal pain, Diarrhea, Nausea, Vomiting Genitourinary: Denies: dysuria, frequency, burning, flank pain Musculoskeletal: Denies: shoulder pain, leg pain, joint pain Skin: Denies: jaundice, bruising, pruritis, rash Neurological: Denies: Confusion, Numbness, Tingling Psychiatric: Denies: confusion, anxiety - Patient Data Vitals - Most Recent: Last Vital Signs Temp 36.8 C 10/14/16 07:00 Pulse 110 H 10/14/16 07:00 Resp 16 10/14/16 07:00 BP 102/57 L 10/14/16 07:00 Pulse Ox 92 L 10/14/16 07:00 Weight - Most Recent: 65.862 kg I&O - Last 24 hours: Intake & Output 10/13/16 10/14/16 10/14/16 22:59 06:59 14:59 Intake Total 2662 1237 1001 Balance 2662 1237 1001 SPEEDY Results - Last 24 hrs: Microbiology 10/11/16 19:30 Stool Culture - Final Other - Stool, Liquid NORMAL ENTERIC JULIANE. NO SALMONELLA, SHIGELLA, CAMPYLOBACTER OR E.COLI O157 ISOLATED. 10/11/16 20:10 Aerobic Blood Culture - Preliminary Blood - Venous - Lab Draw NO GROWTH AFTER 2 DAYS Anaerobic Blood Culture - Preliminary NO GROWTH AFTER 2 DAYS 10/11/16 20:05 Aerobic Blood Culture - Preliminary Blood - Venous NO GROWTH AFTER 2 DAYS Anaerobic Blood Culture - Preliminary NO GROWTH AFTER 2 DAYS 10/11/16 19:30 Clostridium difficile (PCR) - Final Stool / Feces 10/11/16 19:30 Shiga Toxin I & II - Final Stool / Feces Med Orders - Current: Current Medications Hydrocodone Bitart/Acetaminophen ([place] 325-10 Mg) 1 tab PO Q4H PRN PRN Reason: Pain (moderate 4-6) Last Admin: 10/14/16 09:29 Dose: 1 tab Ciprofloxacin/Dextrose 400 mg/ (Premix) 200 mls @ 200 mls/hr IV Q12HR [facility] Last Admin: 10/14/16 09:26 Dose: 200 mls/hr Potassium Chloride/Dextrose/Sod Cl (D5 Ns With 20 Meq Kcl) 1,000 mls @ 150 mls/ hr IV ASDIRECTED [facility] Last Admin: 10/14/16 09:27 Dose: 150 mls/hr Metronidazole 500 mg/ Premix 100 mls @ 100 mls/hr IV Q8H [facility] Last Admin: 10/14/16 04:04 Dose: 100 mls/hr Morphine Sulfate (Morphine) 2 mg IVPUSH Q2H PRN PRN Reason: Pain (severe 7-10) Last Admin: 10/13/16 15:23 Dose: 2 mg Ondansetron HCl (Zofran) 4 mg IVPUSH Q6H PRN PRN Reason: Nausea/Vomiting Last Admin: 10/11/16 21:50 Dose: 4 mg Promethazine HCl (Phenergan) 12.5 mg IM Q6H PRN PRN Reason: Nausea/Vomiting Sodium Chloride (Saline Flush) 10 ml FLUSH ASDIRECTED PRN PRN Reason: Keep Vein Open Last Admin: 10/12/16 21:50 Dose: 10 ml Zolpidem Tartrate (Ambien) 5 mg PO BEDTIME PRN PRN Reason: Sleep Discontinued Medications Enoxaparin Sodium (Lovenox) 30 mg SUBCUT DAILY [facility] Sodium Chloride (Normal Saline) 1,000 mls @ 150 mls/hr IV ASDIRECTED [facility] Last Admin: 10/12/16 06:47 Dose: 150 mls/hr Metronidazole 500 mg/ Premix 100 mls @ 100 mls/hr IV Q8H [facility] Last Infusion: 10/12/16 13:08 Dose: Infused Sodium Chloride (Normal Saline) 2,000 mls @ 999 mls/hr IV .BOLUS ONE Stop: 10/11/16 21:53 Last Infusion: 10/11/16 23:02 Dose: Infused Metronidazole 500 mg/ Premix 100 mls @ 100 mls/hr IV Q8H [facility] Last Admin: 10/12/16 14:01 Dose: Not Given Potassium Chloride (Klor-Con 10) 40 meq PO ONETIME ONE Stop: 10/12/16 08:26 Last Admin: 10/12/16 09:35 Dose: 40 meq - Exam Quality Assessment: Reports: DVT prophylaxis. Denies: supplemental oxygen, urine catheter General: Reports: alert, oriented, cooperative, no acute distress HEENT: Reports: Pupils equal, Mucous membr. moist/pink Neck: Reports: supple, no JVD. Denies: lymphadenopathy Lungs: Reports: Clear to auscultation, Normal respiratory effort Cardiovascular: Reports: Regular Rate, Regular Rhythm Abdomen: Reports: bowel sounds present, soft, no tenderness, no distension. Denies: rebound, guarding Rectal (Males) Exam: Deferred Back Exam: Reports: normal inspection, full range of motion Extremities: Reports: no edema, no calf tenderness Skin: Reports: warm, dry, intact Neurological: Reports: no new focal deficit Psy/Mental Status: Reports: alert, normal affect, normal mood *Q Meaningful Use (DIS) - VTE *Q VTE Criteria *Q: - Stroke *Q Stroke Criteria *Q: - AMI *Q AMI Criteria *Q:
[2016-10-14 15:42] VITALS: BP 123/68
== END 2016-10-14 15:50 | disposition home or self-care (01) | DRG 373 ==
LOC: UNDOADMOB 17:33 → DL.MS 17:33 → OBSVTOIN 19:21 → DL.MS 19:21
PROVIDERS: ADMIT Family Medicine; ATTEND Family Medicine
DX: K52.9 Noninfective gastroenteritis and colitis, unspecified (principal); A04.7 Enterocolitis due to Clostridium difficile; F17.210 Nicotine dependence, cigarettes, uncomplicated; R10.9 Unspecified abdominal pain; R19.7 Diarrhea, unspecified; R11.0 Nausea; F12.10 Cannabis abuse, uncomplicated; E87.6 Hypokalemia; K02.9 Dental caries, unspecified; Z88.5 Allergy status to narcotic agent
CPT/HCPCS: 36415; 80048; 80305; 83605; 85025; 86140; 87040; 87045; 87046; 87493; 87899; A9270-GY; J0744; J2270; J2405; J3480; J7030; J7050

== ENCOUNTER 2019-05-05 23:06 | Emergency (ER) | payer MEDICAID ==
[2019-05-05 23:26] VITALS: BP 123/67; PULSE 73
[2019-05-05] MEDS ORDERED: cefTRIAXone 1 GM, Lidocaine 1% 2.1 ML IM ONE ×2 (23:50)
[2019-05-05] MEDS ORDERED: Azithromycin 250 MG Tab PO ONE (23:50)
--- NOTE | 2019-05-05 23:59 | EDM.PDOC ---
ED HPI GENERAL MEDICAL PROBLEM - General Chief Complaint: Genitourinary Problem Stated Complaint: UTI Time Seen by Provider: 05/05/19 23:32 Source of Information: Reports: Patient History Limitations: Reports: No Limitations - History of Present Illness INITIAL COMMENTS - FREE TEXT/NARRATIVE: ED with c/o pain with uriantion, frequency and only voiding in samall amounts, chills no fever, Unsure if chance of STD, Has had in past, Denies any drainage Admits had some with previous STD. Penis Pain Score (Numeric/FACES): 5 - Related Data Allergies Allergy/AdvReac Type Severity Reaction Status Date / Time codeine Allergy Rash Verified 05/05/19 23:14 hydrocodone Allergy Hives Verified 05/05/19 23:14 Home Meds: Home Meds Acetaminophen [Tylenol] 2 cap PO DAILY PRN 12/16/18 [History] oxyCODONE 5 mg PO DAILY PRN 12/16/18 [History] Past Medical History - Past Health History Medical/Surgical History: Denies Medical/Surgical History Gastrointestinal History: Reports: Other (See Below) Other Gastrointestinal History: Had c diff in 2017, hx of colitis Musculoskeletal History: Reports: Arthritis, Other (See Below) Other Musculoskeletal History: patient states arthritis in toes on right foot - Infectious Disease History Infectious Disease History: Reports: Chicken Pox, Influenza - Past Surgical History Musculoskeletal Surgical History: Reports: Other (See Below) Other Musculoskeletal Surgeries/Procedures:: left knee 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 Social & Family History - Family History Family Medical History: Noncontributory - Tobacco Use Smoking Status *Q: Current Every Day Smoker Years of Tobacco use: 25 Packs/Tins Daily: 0.5 Used Tobacco, but Quit: No Second Hand Smoke Exposure: Yes - Caffeine Use Caffeine Use: Reports: Coffee, Energy Drinks, Soda, Tea - Recreational Drug Use Recreational Drug Use: Yes Drug Use in Last 12 Months: Yes Recreational Drug Type: Reports: Methamphetamine Recreational Drug Use Frequency: Not Used In Over 2 Months ED ROS GENERAL - Review of Systems Review Of Systems: ROS reveals no pertinent complaints other than HPI. ED EXAM, RENAL/ - Physical Exam Exam: See Below Exam Limited By: No Limitations General Appearance: Alert, No Apparent Distress Eye Exam: Bilateral Eye: EOMI Ears: Normal External Exam, Hearing Grossly Normal Throat/Mouth: Normal Inspection Head: Atraumatic, Normocephalic Respiratory/Chest: Lungs Clear, Normal Breath Sounds Cardiovascular: Regular Rate, Rhythm GI/Abdominal: Soft, Non-Tender Back Exam: No: CVA Tenderness (L), CVA Tenderness (R) Neurological: Alert, Oriented. No: Normal Cognition (slightly below average) Psychiatric: Normal Mood Skin Exam: Warm, Dry, Intact, Normal Color Course - Vital Signs Last Recorded V/S: Last Vital Signs Temp 97.9 F 05/05/19 23:24 Pulse 73 05/05/19 23:24 Resp 18 05/05/19 23:24 BP 123/67 05/05/19 23:24 Pulse Ox 100 05/05/19 23:24 - Orders/Labs/Meds Orders: Active Orders 24 hr Category Date Time Status CHLAMYDIA AND GONORRHEA BY [facility] Urgent Lab 05/05/19 23:16 Received CULTURE URINE [RM] Stat Lab 05/05/19 23:16 Received Labs: Laboratory Tests 05/05/19 Range/Units 23:16 Urine Color Yellow (YELLOW) Urine Appearance Cloudy (CLEAR) Urine pH 6.0 (5.0-9.0) Ur Specific [facility] >= 1.030 (1.005-1.030) Urine Protein 100 H (NEGATIVE) Urine Glucose (UA) Negative (NEGATIVE) Urine Ketones Trace H (NEGATIVE) Urine Occult Blood Large H (NEGATIVE) Urine Nitrite Negative (NEGATIVE) Urine Bilirubin Small H (NEGATIVE) Urine Urobilinogen 1.0 (0.2-1.0) mg/dL Ur Leukocyte Esterase Moderate H (NEGATIVE) Urine RBC 75-100 H /HPF Urine WBC >100 H (0-5/HPF) /HPF Ur Epithelial Cells Rare (NOT SEEN) /HPF Amorphous Sediment Few (NOT SEEN) /HPF Urine Bacteria Moderate H (0-FEW/HPF) /HPF Urine Mucus Few H (NOT SEEN) /LPF Meds: Medications Discontinued Medications Generic Name Dose Route Start Last Admin Trade Name Freq PRN Reason Stop Dose Admin Azithromycin 1,000 mg 05/05/19 23:50 05/06/19 00:03 Zithromax PO 05/05/19 23:51 1,000 mg ONETIME ONE Administration Ceftriaxone Sodium 1 gm/ 0 gm 05/05/19 23:50 05/06/19 00:04 Lidocaine HCl 2.1 ml IM 05/05/19 23:51 1 inj ONETIME ONE Administration Departure - Departure Time of Disposition: 23:54 Disposition: Home, Self-Care 01 Condition: Good Clinical Impression: UTI, Urinary tract infectious disease - Discharge Information *PRESCRIPTION DRUG MONITORING PROGRAM REVIEWED*: Not Applicable *COPY OF PRESCRIPTION DRUG MONITORING REPORT IN PATIENT VANDANA: Not Applicable Instructions: Urinary Tract Infection, Adult, [id number] Referrals: PCP,None [Ordering Only Provider] - Forms: ED Department Discharge Additional Instructions: increase fluids cipro 500mg one twice daily for one week follow up if symptoms worsen - My Orders Last 24 Hours: My Active Orders 05/05/19 23:16 CHLAMYDIA AND GONORRHEA BY [facility] Urgent CULTURE URINE [RM] Stat - Assessment/Plan Last 24 Hours: My Active Orders 05/05/19 23:16 CHLAMYDIA AND GONORRHEA BY [facility] Urgent CULTURE URINE [RM] Stat
== END 2019-05-06 00:08 | disposition home or self-care (01) ==
LOC: DL.ED 23:06
DX: N39.0 Urinary tract infection, site not specified (principal); F17.210 Nicotine dependence, cigarettes, uncomplicated; Z88.5 Allergy status to narcotic agent
CPT/HCPCS: 81001; 87086; 87491; 87591; 96372; 99283; A9270; J0696; J2001; 87186

== ENCOUNTER 2019-07-01 14:44 | Inpatient (IN) | payer MEDICAID ==
--- NOTE | 2019-07-01 15:12 | EDM.PDOC ---
"ED HPI GENERAL MEDICAL PROBLEM - General Chief Complaint: Respiratory Problem Stated Complaint: pain on right side when breathes Time Seen by Provider: 07/01/19 15:00 Source of Information: Reports: Patient, Old Records, RN, RN Notes Reviewed History Limitations: Reports: No Limitations - History of Present Illness INITIAL COMMENTS - FREE TEXT/NARRATIVE: Pt presents to ER with c/o sharp right chest pain for several days, but worse today. About 1 or 2 weeks ago he reports having a week long febrile illness with cough, high fevers, and sweats with body aches. He assumed he had the flu since influenza was going around. The fevers and cough resolved last week. A few days after the febrile illness resolve he developed the sharp right chest pains that he now complains of. He denies shortness of breath, current fever/ chills, back pain, radiating pain, wheezing, hemoptysis, edema, or palpitations. Denies any leg pain or swelling, or recent travel. Onset: Gradual Duration: Constant Location: Reports: Chest Quality: Reports: Ache, Sharp Severity: Moderate Improves with: Reports: None Worsens with: Reports: None Associated Symptoms: Reports: No Other Symptoms - Related Data Allergies Allergy/AdvReac Type Severity Reaction Status Date / Time codeine Allergy Rash Verified 07/01/19 14:57 hydrocodone Allergy Hives Verified 07/01/19 14:57 Home Meds: Home Meds Acetaminophen [Tylenol] 2 cap PO DAILY PRN 12/16/18 [History] oxyCODONE 5 mg PO DAILY PRN 12/16/18 [History] Past Medical History - Past Health History Medical/Surgical History: Denies Medical/Surgical History Gastrointestinal History: Reports: Other (See Below) Other Gastrointestinal History: Had c diff in 2017, hx of colitis Musculoskeletal History: Reports: Arthritis, Other (See Below) Other Musculoskeletal History: patient states arthritis in toes on right foot - Infectious Disease History Infectious Disease History: Reports: Chicken Pox, Influenza - Past Surgical History Musculoskeletal Surgical History: Reports: Other (See Below) Other Musculoskeletal Surgeries/Procedures:: left knee 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 Social & Family History - Family History Family Medical History: Noncontributory - Tobacco Use Smoking Status *Q: Current Every Day Smoker Years of Tobacco use: 15 Packs/Tins Daily: 0.5 Used Tobacco, but Quit: No Second Hand Smoke Exposure: Yes - Caffeine Use Caffeine Use: Reports: Energy Drinks, Soda - Recreational Drug Use Recreational Drug Use: Yes Recreational Drug Type: Reports: Marijuana/Hashish - Living Situation & Occupation Living situation: Reports: , with Family ED ROS GENERAL - Review of Systems Review Of Systems: Comprehensive ROS is negative, except as noted in HPI. ED EXAM, GENERAL - Physical Exam Exam: See Below Exam Limited By: No Limitations General Appearance: Alert, WD/WN, No Apparent Distress Eye Exam: Bilateral Eye: Normal Inspection Nose: Normal Inspection, Normal Mucosa, No Blood Throat/Mouth: Normal Inspection, Normal Lips, Normal Voice, No Airway Compromise Head: Atraumatic, Normocephalic Neck: Normal Inspection, Supple, Non-Tender, Full Range of Motion. No: Lymphadenopathy (L), Lymphadenopathy (R) Respiratory/Chest: No Respiratory Distress, No Accessory Muscle Use, Decreased Breath Sounds (Rt upper lung field), Rhonchi (Rt upper lung field), Other (Rt chest wall tenderness to firm palpation). No: Crackles, Rales, Wheezing, Stridor Cardiovascular: Normal Peripheral Pulses, Regular Rate, Rhythm, No Edema, No Gallop, No JVD, No Murmur, No Rub GI/Abdominal: Normal Bowel Sounds, Soft, Non-Tender, No Organomegaly, No Distention, No Abnormal Bruit, No Mass Back Exam: Normal Inspection, Full Range of Motion, NT Extremities: Normal Inspection, Normal Range of Motion, Non-Tender, No Pedal Edema, Normal Capillary Refill. No: Jack's Sign Neurological: Alert, Oriented, CN II-XII Intact, Normal Cognition, Normal Gait, No Motor/Sensory Deficits Psychiatric: Normal Affect, Normal Mood Skin Exam: Warm, Dry, Intact, Normal Color, No Rash Course - Vital Signs Last Recorded V/S: Last Vital Signs Temp 98.5 F 07/01/19 14:58 Pulse 99 07/01/19 14:58 Resp 18 07/01/19 14:58 BP 143/81 H 07/01/19 14:58 Pulse Ox 99 07/01/19 14:58 - Orders/Labs/Meds Orders: Active Orders 24 hr Category Date Time Status Peripheral IV Care [RC] . DIRECTED Care 07/01/19 15:13 Active CULTURE BLOOD [BC] Stat Lab 07/01/19 15:24 Received CULTURE BLOOD [BC] Stat Lab 07/01/19 15:29 Received Azithromycin [Zithromax] 500 mg Med 07/01/19 17:18 Active Sodium Chloride 0.9% [Normal Saline] 250 ml IV ONETIME Heparin Sodium/0.45% NaCl [Heparin 25,000 Units in 1/2 Med 07/01/19 17:15 Active NS 500 ML] 25,000 units in 500 ml IV TITRATE Sodium Chloride 0.9% [Saline Flush] Med 07/01/19 15:12 Active 10 ml FLUSH ASDIRECTED PRN cefTRIAXone [Rocephin] 2,000 mg Med 07/01/19 17:17 Active Sodium Chloride 0.9% [Normal Saline] 100 ml IV ONETIME Blood Culture x2 Reflex Set [OM.PC] Stat Oth 07/01/19 15:12 Ordered Peripheral IV Insertion Adult [OM.PC] Stat Oth 07/01/19 15:12 Ordered Medication Orders Heparin Sodium/Sodium Chloride (Heparin 25,000 Units In 1/2 Ns 500 Ml) 25,000 units in 500 mls @ 24.69 mls/hr IV TITRATE ALVIN; Protocol Ceftriaxone Sodium 2,000 mg/ (Sodium Chloride) 100 mls @ 200 mls/hr IV ONETIME ONE Stop: 07/01/19 17:46 Azithromycin 500 mg/ Sodium (Chloride) 250 mls @ 250 mls/hr IV ONETIME ONE Stop: 07/01/19 18:17 Sodium Chloride (Saline Flush) 10 ml FLUSH ASDIRECTED PRN PRN Reason: Keep Vein Open Last Admin: 07/01/19 15:32 Dose: 10 ml Labs: Laboratory Tests 07/01/19 07/01/19 07/01/19 Range/Units 15:24 15:24 15:24 WBC 8.7 (5.0-10.0) 10^3/uL RBC 4.55 L (4.6-6.2) 10^6/uL Hgb 12.9 L (14.0-18.0) g/dL Hct 39.5 L (40.0-54.0) % MCV 86.8 (80-100) fL MCH 28.4 (27.0-34.0) pg MCHC 32.7 L (33.0-35.0) g/dL Plt Count 626 H D (150-450) 10^3/uL Neut % (Auto) 76.0 H (42.2-75.2) % Lymph % (Auto) 14.9 L (20.5-50.1) % [place] % (Auto) 7.7 (2-8) % Eos % (Auto) 1.1 (1.0-3.0) % Baso % (Auto) 0.3 (0.0-1.0) % Add Manual Diff Yes Neutrophils % (Manual) 74 (42-75) % Band Neutrophils % 6 % Lymphocytes % (Manual) 13 L (20-50) % Monocytes % (Manual) 6 (2-8) % Eosinophils % (Manual) 1 (1-3) % D-Dimer, Quantitative 3560 H (0-400) ng/mL Sodium 135 (135-145) mmol/L Potassium 3.8 (3.6-5.0) mmol/L Chloride 95 L (101-111) mmol/L Carbon Dioxide 28.0 (21.0-31.0) mmol/L Anion Gap 15.8 BUN 13 (7-18) mg/dL Creatinine 0.9 (0.6-1.3) mg/dL Est Cr Clr Drug Dosing 107.95 mL/min Estimated GFR (MDRD) > 60 BUN/Creatinine Ratio 14.44 Glucose 98 (74-105) mg/dL Lactic Acid (0.5-2.2) mmol/L Calcium 8.6 (8.4-10.2) mg/dl Total Bilirubin 0.3 (0.2-1.0) mg/dL AST 15 (10-42) IU/L ALT 17 (10-60) IU/L Alkaline Phosphatase 106 (42-121) IU/L Total Protein 7.9 (6.7-8.2) g/dl Albumin 3.3 (3.2-5.5) g/dl Globulin 4.6 Albumin/Globulin Ratio 0.72 Urine Color (YELLOW) Urine Appearance (CLEAR) Urine pH (5.0-9.0) Ur Specific [place] (1.005-1.030) Urine Protein (NEGATIVE) Urine Glucose (UA) (NEGATIVE) Urine Ketones (NEGATIVE) Urine Occult Blood (NEGATIVE) Urine Nitrite (NEGATIVE) Urine Bilirubin (NEGATIVE) Urine Urobilinogen (0.2-1.0) mg/dL Ur Leukocyte Esterase (NEGATIVE) Urine Opiates Screen (NEGATIVE) Ur Oxycodone Screen (NEGATIVE) Urine Methadone Screen (NEGATIVE) Ur Barbiturates Screen (NEGATIVE) U Tricyclic Antidepress (NEGATIVE) Ur Phencyclidine Scrn (NEGATIVE) Ur Amphetamine Screen (NEGATIVE) U Methamphetamines Scrn (NEGATIVE) Urine MDMA Screen (NEGATIVE) U Benzodiazepines Scrn (NEGATIVE) Urine Cocaine Screen (NEGATIVE) U Marijuana (THC) Screen (NEGATIVE) 07/01/19 07/01/19 07/01/19 Range/Units 15:24 15:33 15:33 WBC (5.0-10.0) 10^3/uL RBC (4.6-6.2) 10^6/uL Hgb (14.0-18.0) g/dL Hct (40.0-54.0) % MCV (80-100) fL MCH (27.0-34.0) pg MCHC (33.0-35.0) g/dL Plt Count (150-450) 10^3/uL Neut % (Auto) (42.2-75.2) % Lymph % (Auto) (20.5-50.1) % [place] % (Auto) (2-8) % Eos % (Auto) (1.0-3.0) % Baso % (Auto) (0.0-1.0) % Add Manual Diff Neutrophils % (Manual) (42-75) % Band Neutrophils % % Lymphocytes % (Manual) (20-50) % Monocytes % (Manual) (2-8) % Eosinophils % (Manual) (1-3) % D-Dimer, Quantitative (0-400) ng/mL Sodium (135-145) mmol/L Potassium (3.6-5.0) mmol/L Chloride (101-111) mmol/L Carbon Dioxide (21.0-31.0) mmol/L Anion Gap BUN (7-18) mg/dL Creatinine (0.6-1.3) mg/dL Est Cr Clr Drug Dosing mL/min Estimated GFR (MDRD) BUN/Creatinine Ratio Glucose (74-105) mg/dL Lactic Acid 1.2 (0.5-2.2) mmol/L Calcium (8.4-10.2) mg/dl Total Bilirubin (0.2-1.0) mg/dL AST (10-42) IU/L ALT (10-60) IU/L Alkaline Phosphatase (42-121) IU/L Total Protein (6.7-8.2) g/dl Albumin (3.2-5.5) g/dl Globulin Albumin/Globulin Ratio Urine Color Yellow (YELLOW) Urine Appearance Clear (CLEAR) Urine pH 7.0 (5.0-9.0) Ur Specific [place] 1.025 (1.005-1.030) Urine Protein Negative (NEGATIVE) Urine Glucose (UA) Negative (NEGATIVE) Urine Ketones Negative (NEGATIVE) Urine Occult Blood Negative (NEGATIVE) Urine Nitrite Negative (NEGATIVE) Urine Bilirubin Negative (NEGATIVE) Urine Urobilinogen 0.2 (0.2-1.0) mg/dL Ur Leukocyte Esterase Negative (NEGATIVE) Urine Opiates Screen Negative (NEGATIVE) Ur Oxycodone Screen Negative (NEGATIVE) Urine Methadone Screen Negative (NEGATIVE) Ur Barbiturates Screen Negative (NEGATIVE) U Tricyclic Antidepress Negative (NEGATIVE) Ur Phencyclidine Scrn Negative (NEGATIVE) Ur Amphetamine Screen Negative (NEGATIVE) U Methamphetamines Scrn Negative (NEGATIVE) Urine MDMA Screen Negative (NEGATIVE) U Benzodiazepines Scrn Negative (NEGATIVE) Urine Cocaine Screen Negative (NEGATIVE) U Marijuana (THC) Screen Negative (NEGATIVE) Meds: Medications Generic Name Dose Route Start Last Admin Trade Name Freq PRN Reason Stop Dose Admin Heparin Sodium/Sodium Chloride 25,000 units in 500 mls @ 24.69 mls/hr 17:15 Heparin 25,000 Units In 1/2 Ns 500 Ml IV TITRATE ALVIN Protocol 18 UNITS/KG/HR Ceftriaxone Sodium 2,000 mg/ 100 mls @ 200 mls/hr 07/01/19 17:17 Sodium Chloride IV 07/01/19 17:46 ONETIME ONE Azithromycin 500 mg/ Sodium 250 mls @ 250 mls/hr 07/01/19 17:18 Chloride IV 07/01/19 18:17 ONETIME ONE Sodium Chloride 10 ml 07/01/19 15:12 07/01/19 15:32 Saline Flush FLUSH 10 ml ASDIRECTED PRN Administration Keep Vein Open Discontinued Medications Generic Name Dose Route Start Last Admin Trade Name Freq PRN Reason Stop Dose Admin Heparin Sodium (Porcine) 4,000 units 07/01/19 17:14 Heparin Sodium IVPUSH 07/01/19 17:15 .BOLUS ONE Sodium Chloride 1,000 mls @ 999 mls/hr 07/01/19 15:13 07/01/19 15:32 Normal Saline IV 07/01/19 16:13 999 mls/hr .BOLUS ONE Administration Iopamidol 100 ml 07/01/19 16:26 07/01/19 16:40 [id number] (76%) IVPUSH 07/01/19 16:27 100 ml ONETIME ONE Administration Ketorolac Tromethamine 30 mg 07/01/19 15:13 07/01/19 15:32 Toradol IVPUSH 07/01/19 15:14 30 mg ONETIME ONE Administration - Radiology Interpretation Free Text/Narrative:: [facility] [place] [facility] Final Radiology Report Call: [phone] assistance Online chat: [email or web address] [email or web address] Name: ANDRÉS VALENZUELA Age: 38Years M Date: 07/01/2019 SSN: -- : [id number] Study: CT CHEST W Requesting Physician: RIZWAN MALDONADO Images: [id number] Addl Studies: Provided Clinical History: Contrast: With Contrast Medium: [id number] Contrast Amount: 74 mL Contrast Method: rac Page 1 of 2 PROCEDURE INFORMATION: Exam: CT Chest With Contrast Exam date and time: 07/01/2019 4:52 PM Age: 38 years old Clinical indication: Other: Right sided chest pain, abnormal cxr, d-dimer 3560-- pe evaluation TECHNIQUE: Imaging protocol: Computed tomography of the chest with intravenous contrast. Radiation optimization: All CT scans at this facility use at least one of these dose optimization techniques: automated exposure control; mA and/or kV adjustment per patient size (includes targeted exams where dose is matched to clinical indication); or iterative reconstruction. Contrast material: [id number]; Contrast volume: 74 ml; Contrast route: RAC; COMPARISON: CR Chest 2V 07/01/2019 3:05 PM FINDINGS: Lungs: Right upper lobe pneumonia is present. Atelectatic changes noted within the right lung base. Pleural space: Right pleural effusion is present. Heart: No cardiomegaly. No pericardial effusion. Pulmonary arteries: There is a filling defect present within the pulmonary artery to the right upper lobe best seen on series 6, image number 37 and series 7, image number 78. No other filling defects are present. Aorta: No aortic aneurysm. Lymph nodes: Mediastinal lymphadenopathy is present measuring up to 1.2 cm. Bones/joints: The thoracic spine demonstrates mild degenerative changes at multiple levels. Soft tissues: There is nonspecific gynecomastia. IMPRESSION: 1. Small pulmonary embolism within the pulmonary artery to the right upper lobe. ANDRÉS VALENZUELA | Final Radiology Report CONFIDENTIALITY STATEMENT This report is intended only for use by the referring physician, and only in accordance with law. If you received this in error, call [phone]. Page 2 of 2 2. Right pleural effusion is present. 3. Mediastinal lymphadenopathy is present measuring up to 1.2 cm. 4. Right upper lobe pneumonia is present. 5. Atelectatic changes noted within the right lung base. Thank you for allowing us to participate in the care of your patient. Dictated and Authenticated by: Kai Dewey DO 07/01/2019 5:13 PM Central Time ([place] & [place]) - Re-Assessments/Exams Free Text/Narrative Re-Assessment/Exam: 07/01/19 17:33 Pt is hemodynamically stable, with oxygen saturations 99% on room air. Pt accepted for admission by Dr. Fogn to acute/inpt. status. Departure - Departure Time of Disposition: 17:30 (admitted to Dr. Fong) Disposition: Admitted As Inpatient 66 Condition: Fair, Serious Clinical Impression: Pulmonary embolism Qualifiers: Pulmonary embolism type: single subsegmental (without acute cor pulmonale) Qualified Code(s): I26.93 - Single subsegmental pulmonary embolism without acute cor pulmonale Pneumonia Qualifiers: Pneumonia type: due to unspecified organism Laterality: right Lung location: upper lobe of lung Qualified Code(s): J18.9 - Pneumonia, unspecified organism - Discharge Information *PRESCRIPTION DRUG MONITORING PROGRAM REVIEWED*: No *COPY OF PRESCRIPTION DRUG MONITORING REPORT IN PATIENT VANDANA: No Forms: ED Department Discharge Sepsis Event Note - Evaluation Sepsis Screening Result: No Definite Risk - Focused Exam Vital Signs: Vital Signs Temp Pulse Resp BP Pulse Ox 07/01/19 14:58 98.5 F 99 18 143/81 H 99 Date Exam was Performed: 07/01/19 Time Exam was Performed: 17:30 - My Orders Last 24 Hours: My Active Orders 07/01/19 15:12 Sodium Chloride 0.9% [Saline Flush] 10 ml FLUSH ASDIRECTED PRN Blood Culture x2 Reflex Set [OM.PC] Stat Peripheral IV Insertion Adult [OM.PC] Stat 07/01/19 15:13 Peripheral IV Care [RC] . DIRECTED 07/01/19 15:24 CULTURE BLOOD [BC] Stat 07/01/19 15:29 CULTURE BLOOD [BC] Stat 07/01/19 17:15 Heparin Sodium/0.45% NaCl [Heparin 25,000 Units in 1/2 NS 500 ML] 25,000 units in 500 ml IV TITRATE 07/01/19 17:17 cefTRIAXone [Rocephin] 2,000 mg Sodium Chloride 0.9% [Normal Saline] 100 ml IV ONETIME 07/01/19 17:18 Azithromycin [Zithromax] 500 mg Sodium Chloride 0.9% [Normal Saline] 250 ml IV ONETIME - Assessment/Plan Last 24 Hours: My Active Orders 07/01/19 15:12 Sodium Chloride 0.9% [Saline Flush] 10 ml FLUSH ASDIRECTED PRN Blood Culture x2 Reflex Set [OM.PC] Stat Peripheral IV Insertion Adult [OM.PC] Stat 07/01/19 15:13 Peripheral IV Care [RC] . DIRECTED 07/01/19 15:24 CULTURE BLOOD [BC] Stat 07/01/19 15:29 CULTURE BLOOD [BC] Stat 07/01/19 17:15 Heparin Sodium/0.45% NaCl [Heparin 25,000 Units in 1/2 NS 500 ML] 25,000 units in 500 ml IV TITRATE 07/01/19 17:17 cefTRIAXone [Rocephin] 2,000 mg Sodium Chloride 0.9% [Normal Saline] 100 ml IV ONETIME 07/01/19 17:18 Azithromycin [Zithromax] 500 mg Sodium Chloride 0.9% [Normal Saline] 250 ml IV ONETIME"
[2019-07-01] MEDS ORDERED: Sodium Chloride 0.9% 1,000 ML IV ONE (15:13)
[2019-07-01] MEDS ORDERED: Ketorolac 30 MG/ML SDV IVPUSH ONE (15:13)
[2019-07-01] MEDS: Sodium Chloride 0.9% 10 ML Syringe FLUSH PRN (15:32)
[2019-07-01 15:57] LABS: ANION GAP 15.8; CHLORIDE,CL 95 mmol/L (101-111); SODIUM,NA 135 mmol/L (135-145)
[2019-07-01] MEDS ORDERED: Iopamidol 755 Mg/ML 100 ML Bottle IVPUSH ONE (16:26)
[2019-07-01] MEDS ORDERED: Heparin Sodium 5,000 Units/ML Vial IVPUSH ONE (17:14)
[2019-07-01] MEDS ORDERED: Azithromycin 500 MG in Sodium Chloride 0.9% 250 ML IV ONE (17:18)
[2019-07-01] MEDS: Heparin Sodium/0.45% NaCl 25,000 UNITS/500 ML BAG IV SCH (17:41)
[2019-07-01] MEDS ORDERED: Albuterol/Ipratropium 3.0-0.5 MG/3 ML Neb Soln NEB PRN (17:57)
[2019-07-01] MEDS ORDERED: Acetaminophen 325 MG Tab PO PRN (17:57)
[2019-07-01] MEDS ORDERED: Ketorolac 30 MG/ML SDV IVPUSH PRN (17:57)
[2019-07-01] MEDS ORDERED: Warfarin 5 MG Tab PO ONE (18:15)
--- NOTE | 2019-07-01 19:11 | HP ---
CHIEF COMPLAINT: Cough and pleuritic chest pain. HISTORY OF PRESENT ILLNESS: The patient is a 38-year-old male who was admitted through the emergency room because the patient was complaining of sharp right- sided chest pain for several days and aggravated with deep inspiration and coughing spells. The patient mentioned that about a week ago, he had some fever and sweats and body aches and until this started developing of the pleuritic chest pain. When the patient was seen in the emergency room, he had a chest x- ray which showed right upper lobe pneumonia with some wedge infiltrate and because of also elevated D-dimer, a CAT scan was done and this showed a small pulmonary embolism together with the pneumonia and because of this, the patient was then admitted for further evaluation and management. PAST MEDICAL HISTORY: He had left knee debridement a year ago due to infection, history of C diff colitis in 2017. Past Medical history otherwise unremarkable. FAMILY HISTORY: Noncontributory. SOCIAL HISTORY: The patient is a smoker about 5 cigarettes a day. Denies any alcohol use and denies any illicit drug use. REVIEW OF SYSTEMS: The patient denies any syncope, orthopnea, PND, abdominal pain, melena, hematochezia, pedal edema, calf tenderness, nor any other complaints. HOME MEDICATIONS: Tylenol. ALLERGIES: Hydrocodone and codeine (hives). PHYSICAL EXAMINATION: General: The patient is very pleasant. He is alert and oriented, not in any acute distress. Vital Signs: Blood pressure is 143/81, pulse of 99, respirations of 20, temperature of 98.5. HEENT: Normocephalic. There are pink palpebral conjunctivae. Sclerae anicteric. Neck: No JVD. No lymphadenopathy. Heart: Regular rate and rhythm. Normal S1 and S2. No gallops. No rubs. Lungs: Equal bilaterally. There are some faint crackles on the right lung field. No wheezing and breath sounds are equal. Abdomen: Soft, nontender. Bowel sounds positive. Extremities: Negative for any pedal edema. No calf tenderness. LABORATORY WORKUP: CBC; WBC 8.7, hemoglobin is 12.9, hematocrit is 39.5, platelets 626. D-dimer is 3560. Comp panel, chloride of 95. The rest of the panel unremarkable. Urinalysis is unremarkable. Urine drug screen is negative. CAT scan of the chest and PE study showed right upper lobe pneumonia and small pulmonary embolism within the pulmonary artery to the right upper lobe. ADMITTING DIAGNOSES: 1. Right lobe pneumonia. 2. Pulmonary embolism. TREATMENT PLAN: The patient was given in the emergency room heparin bolus and continued on heparin drip and this will be continued, and we will also start the patient on Coumadin for anticoagulation. We will give him IV antibiotics that is ceftriaxone and Zithromax. The rest of the panel as necessary, and the patient is a full code. [facility] /[id number]
[2019-07-01] MEDS: Sodium Chloride 0.9% 1,000 ML IV SCH (19:15)
[2019-07-01] MEDS: Nicotine 7 MG/24 Hr Patch TRDERM SCH (20:14)
[2019-07-01] MEDS: cefTRIAXone 1 GM in Sodium Chloride 0.9% 50 ML IV SCH (22:03)
[2019-07-02] MEDS: Sodium Chloride 0.9% 1,000 ML IV SCH ×2 (04:14→13:37)
[2019-07-02] MEDS: Remove Patch NICOTINE PATCH TRDERM SCH (08:40)
[2019-07-02] MEDS: Nicotine 7 MG/24 Hr Patch TRDERM SCH (08:41)
[2019-07-02] MEDS: cefTRIAXone 1 GM in Sodium Chloride 0.9% 50 ML IV SCH ×2 (08:41→21:09)
--- NOTE | 2019-07-02 11:46 | PCM.PN ---
- General Info Date of Service: 07/02/19 Admission Dx/Problem (Free Text): He is admitted with : Rt lower lobe Pneumonia and Pulmonary Embolism Subjective Update: Pt was seen in room doing well, No nausea or vomiting, No fever or chill, no chest pain or shortness of Breath Functional Status: Reports: Pain Controlled, Tolerating Diet, Ambulating, Urinating - Review of Systems General: Reports: Appetite (acceptable). Denies: Fever, Chills HEENT: Denies: Headaches, Sinus Congestion, Visual Changes Pulmonary: Reports: Pleuritic Chest Pain, Cough. Denies: Shortness of Breath, Sputum, Wheezing Cardiovascular: Denies: Chest Pain, Dyspnea on Exertion, Lightheadedness Gastrointestinal: Denies: Abdominal Pain, Constipation, Diarrhea, Difficulty Swallowing, Nausea, Vomiting Genitourinary: Denies: Dysuria, Burning, Urgency, Flank Pain Musculoskeletal: Denies: Neck Pain, Shoulder Pain, Foot Pain, Joint Pain Skin: Denies: Cyanosis, Diaphoresis, Bruising, Pruritis, Rash Neurological: Denies: Confusion, Dizziness, Tremors Psychiatric: Denies: Confusion, Anxiety - Patient Data Vitals - Most Recent: Last Vital Signs Temp 36.9 C 07/02/19 07:48 Pulse 72 07/02/19 07:48 Resp 20 07/02/19 07:48 BP 120/68 07/02/19 07:48 Pulse Ox 99 07/02/19 07:48 Weight - Most Recent: 68.039 kg I&O - Last 24 Hours: Intake & Output 07/01/19 07/02/19 07/02/19 22:59 06:59 14:59 Intake Total 3395 170 Balance 3395 170 Lab Results Last 24 Hours: Laboratory Results - last 24 hr 07/01/19 07/01/19 07/01/19 Range/Units 15:24 15:24 15:24 WBC 8.7 (5.0-10.0) 10^3/uL RBC 4.55 L (4.6-6.2) 10^6/uL Hgb 12.9 L (14.0-18.0) g/dL Hct 39.5 L (40.0-54.0) % MCV 86.8 (80-100) fL MCH 28.4 (27.0-34.0) pg MCHC 32.7 L (33.0-35.0) g/dL Plt Count 626 H D (150-450) 10^3/uL Neut % (Auto) 76.0 H (42.2-75.2) % Lymph % (Auto) 14.9 L (20.5-50.1) % Wolfe % (Auto) 7.7 (2-8) % Eos % (Auto) 1.1 (1.0-3.0) % Baso % (Auto) 0.3 (0.0-1.0) % Add Manual Diff Yes Neutrophils % (Manual) 74 (42-75) % Band Neutrophils % 6 % Lymphocytes % (Manual) 13 L (20-50) % Monocytes % (Manual) 6 (2-8) % Eosinophils % (Manual) 1 (1-3) % PT (9.0-12.0) SEC INR (0.9-1.2) APTT (22.0-34.0) SEC D-Dimer, Quantitative 3560 H (0-400) ng/mL Sodium 135 (135-145) mmol/L Potassium 3.8 (3.6-5.0) mmol/L Chloride 95 L (101-111) mmol/L Carbon Dioxide 28.0 (21.0-31.0) mmol/L Anion Gap 15.8 BUN 13 (7-18) mg/dL Creatinine 0.9 (0.6-1.3) mg/dL Est Cr Clr Drug Dosing 107.95 mL/min Estimated GFR (MDRD) > 60 BUN/Creatinine Ratio 14.44 Glucose 98 (74-105) mg/dL Lactic Acid (0.5-2.2) mmol/L Calcium 8.6 (8.4-10.2) mg/dl Total Bilirubin 0.3 (0.2-1.0) mg/dL AST 15 (10-42) IU/L ALT 17 (10-60) IU/L Alkaline Phosphatase 106 (42-121) IU/L Total Protein 7.9 (6.7-8.2) g/dl Albumin 3.3 (3.2-5.5) g/dl Globulin 4.6 Albumin/Globulin Ratio 0.72 Urine Color (YELLOW) Urine Appearance (CLEAR) Urine pH (5.0-9.0) Ur Specific [place] (1.005-1.030) Urine Protein (NEGATIVE) Urine Glucose (UA) (NEGATIVE) Urine Ketones (NEGATIVE) Urine Occult Blood (NEGATIVE) Urine Nitrite (NEGATIVE) Urine Bilirubin (NEGATIVE) Urine Urobilinogen (0.2-1.0) mg/dL Ur Leukocyte Esterase (NEGATIVE) Urine Opiates Screen (NEGATIVE) Ur Oxycodone Screen (NEGATIVE) Urine Methadone Screen (NEGATIVE) Ur Barbiturates Screen (NEGATIVE) U Tricyclic Antidepress (NEGATIVE) Ur Phencyclidine Scrn (NEGATIVE) Ur Amphetamine Screen (NEGATIVE) U Methamphetamines Scrn (NEGATIVE) Urine MDMA Screen (NEGATIVE) U Benzodiazepines Scrn (NEGATIVE) Urine Cocaine Screen (NEGATIVE) U Marijuana (THC) Screen (NEGATIVE) 07/01/19 07/01/19 07/01/19 Range/Units 15:24 15:24 15:33 WBC (5.0-10.0) 10^3/uL RBC (4.6-6.2) 10^6/uL Hgb (14.0-18.0) g/dL Hct (40.0-54.0) % MCV (80-100) fL MCH (27.0-34.0) pg MCHC (33.0-35.0) g/dL Plt Count (150-450) 10^3/uL Neut % (Auto) (42.2-75.2) % Lymph % (Auto) (20.5-50.1) % Wolfe % (Auto) (2-8) % Eos % (Auto) (1.0-3.0) % Baso % (Auto) (0.0-1.0) % Add Manual Diff Neutrophils % (Manual) (42-75) % Band Neutrophils % % Lymphocytes % (Manual) (20-50) % Monocytes % (Manual) (2-8) % Eosinophils % (Manual) (1-3) % PT 9.5 (9.0-12.0) SEC INR 0.9 (0.9-1.2) APTT (22.0-34.0) SEC D-Dimer, Quantitative (0-400) ng/mL Sodium (135-145) mmol/L Potassium (3.6-5.0) mmol/L Chloride (101-111) mmol/L Carbon Dioxide (21.0-31.0) mmol/L Anion Gap BUN (7-18) mg/dL Creatinine (0.6-1.3) mg/dL Est Cr Clr Drug Dosing mL/min Estimated GFR (MDRD) BUN/Creatinine Ratio Glucose (74-105) mg/dL Lactic Acid 1.2 (0.5-2.2) mmol/L Calcium (8.4-10.2) mg/dl Total Bilirubin (0.2-1.0) mg/dL AST (10-42) IU/L ALT (10-60) IU/L Alkaline Phosphatase (42-121) IU/L Total Protein (6.7-8.2) g/dl Albumin (3.2-5.5) g/dl Globulin Albumin/Globulin Ratio Urine Color Yellow (YELLOW) Urine Appearance Clear (CLEAR) Urine pH 7.0 (5.0-9.0) Ur Specific [place] 1.025 (1.005-1.030) Urine Protein Negative (NEGATIVE) Urine Glucose (UA) Negative (NEGATIVE) Urine Ketones Negative (NEGATIVE) Urine Occult Blood Negative (NEGATIVE) Urine Nitrite Negative (NEGATIVE) Urine Bilirubin Negative (NEGATIVE) Urine Urobilinogen 0.2 (0.2-1.0) mg/dL Ur Leukocyte Esterase Negative (NEGATIVE) Urine Opiates Screen (NEGATIVE) Ur Oxycodone Screen (NEGATIVE) Urine Methadone Screen (NEGATIVE) Ur Barbiturates Screen (NEGATIVE) U Tricyclic Antidepress (NEGATIVE) Ur Phencyclidine Scrn (NEGATIVE) Ur Amphetamine Screen (NEGATIVE) U Methamphetamines Scrn (NEGATIVE) Urine MDMA Screen (NEGATIVE) U Benzodiazepines Scrn (NEGATIVE) Urine Cocaine Screen (NEGATIVE) U Marijuana (THC) Screen (NEGATIVE) 07/01/19 07/02/19 07/02/19 Range/Units 15:33 05:50 05:50 WBC 4.6 L (5.0-10.0) 10^3/uL RBC 4.28 L (4.6-6.2) 10^6/uL Hgb 12.1 L (14.0-18.0) g/dL Hct 37.2 L (40.0-54.0) % MCV 86.9 (80-100) fL MCH 28.3 (27.0-34.0) pg MCHC 32.5 L (33.0-35.0) g/dL Plt Count 566 H (150-450) 10^3/uL Neut % (Auto) 46.5 (42.2-75.2) % Lymph % (Auto) 41.7 (20.5-50.1) % Wolfe % (Auto) 8.6 H (2-8) % Eos % (Auto) 2.6 (1.0-3.0) % Baso % (Auto) 0.6 (0.0-1.0) % Add Manual Diff Yes Neutrophils % (Manual) 50 (42-75) % Band Neutrophils % 2 % Lymphocytes % (Manual) 38 (20-50) % Monocytes % (Manual) 8 (2-8) % Eosinophils % (Manual) 2 (1-3) % PT 9.8 (9.0-12.0) SEC INR 1.0 (0.9-1.2) APTT (22.0-34.0) SEC D-Dimer, Quantitative (0-400) ng/mL Sodium (135-145) mmol/L Potassium (3.6-5.0) mmol/L Chloride (101-111) mmol/L Carbon Dioxide (21.0-31.0) mmol/L Anion Gap BUN (7-18) mg/dL Creatinine (0.6-1.3) mg/dL Est Cr Clr Drug Dosing mL/min Estimated GFR (MDRD) BUN/Creatinine Ratio Glucose (74-105) mg/dL Lactic Acid (0.5-2.2) mmol/L Calcium (8.4-10.2) mg/dl Total Bilirubin (0.2-1.0) mg/dL AST (10-42) IU/L ALT (10-60) IU/L Alkaline Phosphatase (42-121) IU/L Total Protein (6.7-8.2) g/dl Albumin (3.2-5.5) g/dl Globulin Albumin/Globulin Ratio Urine Color (YELLOW) Urine Appearance (CLEAR) Urine pH (5.0-9.0) Ur Specific [place] (1.005-1.030) Urine Protein (NEGATIVE) Urine Glucose (UA) (NEGATIVE) Urine Ketones (NEGATIVE) Urine Occult Blood (NEGATIVE) Urine Nitrite (NEGATIVE) Urine Bilirubin (NEGATIVE) Urine Urobilinogen (0.2-1.0) mg/dL Ur Leukocyte Esterase (NEGATIVE) Urine Opiates Screen Negative (NEGATIVE) Ur Oxycodone Screen Negative (NEGATIVE) Urine Methadone Screen Negative (NEGATIVE) Ur Barbiturates Screen Negative (NEGATIVE) U Tricyclic Antidepress Negative (NEGATIVE) Ur Phencyclidine Scrn Negative (NEGATIVE) Ur Amphetamine Screen Negative (NEGATIVE) U Methamphetamines Scrn Negative (NEGATIVE) Urine MDMA Screen Negative (NEGATIVE) U Benzodiazepines Scrn Negative (NEGATIVE) Urine Cocaine Screen Negative (NEGATIVE) U Marijuana (THC) Screen Negative (NEGATIVE) 07/02/19 Range/Units 05:50 WBC (5.0-10.0) 10^3/uL RBC (4.6-6.2) 10^6/uL Hgb (14.0-18.0) g/dL Hct (40.0-54.0) % MCV (80-100) fL MCH (27.0-34.0) pg MCHC (33.0-35.0) g/dL Plt Count (150-450) 10^3/uL Neut % (Auto) (42.2-75.2) % Lymph % (Auto) (20.5-50.1) % Wolfe % (Auto) (2-8) % Eos % (Auto) (1.0-3.0) % Baso % (Auto) (0.0-1.0) % Add Manual Diff Neutrophils % (Manual) (42-75) % Band Neutrophils % % Lymphocytes % (Manual) (20-50) % Monocytes % (Manual) (2-8) % Eosinophils % (Manual) (1-3) % PT (9.0-12.0) SEC INR (0.9-1.2) APTT 39.4 H (22.0-34.0) SEC D-Dimer, Quantitative (0-400) ng/mL Sodium (135-145) mmol/L Potassium (3.6-5.0) mmol/L Chloride (101-111) mmol/L Carbon Dioxide (21.0-31.0) mmol/L Anion Gap BUN (7-18) mg/dL Creatinine (0.6-1.3) mg/dL Est Cr Clr Drug Dosing mL/min Estimated GFR (MDRD) BUN/Creatinine Ratio Glucose (74-105) mg/dL Lactic Acid (0.5-2.2) mmol/L Calcium (8.4-10.2) mg/dl Total Bilirubin (0.2-1.0) mg/dL AST (10-42) IU/L ALT (10-60) IU/L Alkaline Phosphatase (42-121) IU/L Total Protein (6.7-8.2) g/dl Albumin (3.2-5.5) g/dl Globulin Albumin/Globulin Ratio Urine Color (YELLOW) Urine Appearance (CLEAR) Urine pH (5.0-9.0) Ur Specific Eldridge (1.005-1.030) Urine Protein (NEGATIVE) Urine Glucose (UA) (NEGATIVE) Urine Ketones (NEGATIVE) Urine Occult Blood (NEGATIVE) Urine Nitrite (NEGATIVE) Urine Bilirubin (NEGATIVE) Urine Urobilinogen (0.2-1.0) mg/dL Ur Leukocyte Esterase (NEGATIVE) Urine Opiates Screen (NEGATIVE) Ur Oxycodone Screen (NEGATIVE) Urine Methadone Screen (NEGATIVE) Ur Barbiturates Screen (NEGATIVE) U Tricyclic Antidepress (NEGATIVE) Ur Phencyclidine Scrn (NEGATIVE) Ur Amphetamine Screen (NEGATIVE) U Methamphetamines Scrn (NEGATIVE) Urine MDMA Screen (NEGATIVE) U Benzodiazepines Scrn (NEGATIVE) Urine Cocaine Screen (NEGATIVE) U Marijuana (THC) Screen (NEGATIVE) [place] Results Last 24 Hours: Microbiology 07/01/19 15:26 Influenza Type A Antigen Screen - Final Nasal, Unspecified NEGATIVE INFLUENZA A VIRUS AG REFERENCE RANGE: NEGATIVE Influenza Type B Antigen Screen - Final NEGATIVE INFLUENZA B VIRUS AG REFERENCE RANGE: NEGATIVE Med Orders - Current: Current Medications Acetaminophen (Tylenol) 650 mg PO Q4H PRN PRN Reason: Pain (Mild 1-3)/fever Last Admin: 07/01/19 20:23 Dose: 650 mg Albuterol/Ipratropium (Duoneb 3.0-0.5 Mg/3 Ml) 3 ml NEB Q4H PRN PRN Reason: shortness of breath/wheezing Heparin Sodium/Sodium Chloride (Heparin 25,000 Units In 1/2 Ns 500 Ml) 25,000 units in 500 mls @ 24.69 mls/hr IV TITRATE ALVIN; Protocol Last Titration: 07/02/19 07:20 Dose: 20 units/kg/hr, 27.433 mls/hr Sodium Chloride (Normal Saline) 1,000 mls @ 125 mls/hr IV ASDIRECTED ALVIN Last Admin: 07/02/19 04:14 Dose: 125 mls/hr Azithromycin 500 mg/ Sodium (Chloride) 250 mls @ 250 mls/hr IV Q24H [facility] Ceftriaxone Sodium 1 gm/ (Sodium Chloride) 50 mls @ 50 mls/hr IV Q12HR [facility] Last Admin: 07/02/19 08:41 Dose: 50 mls/hr Ibuprofen (Motrin) 200 mg PO Q8H PRN PRN Reason: Pain Miscellaneous Information (Remove Patch) 1 ea TRDERM DAILY [facility] Last Admin: 07/02/19 08:40 Dose: 1 ea Nicotine (Habitrol) 7 mg TRDERM DAILY [facility] Last Admin: 07/02/19 08:41 Dose: Not Given Sodium Chloride (Saline Flush) 10 ml FLUSH ASDIRECTED PRN PRN Reason: Keep Vein Open Last Admin: 07/01/19 15:32 Dose: 10 ml Warfarin Sodium (Coumadin) 5 mg PO DAILY@1400 ALVIN Discontinued Medications Heparin Sodium (Porcine) (Heparin Sodium) 4,000 units IVPUSH .BOLUS ONE Stop: 07/01/19 17:15 Last Admin: 07/01/19 17:29 Dose: 5,000 units Sodium Chloride (Normal Saline) 1,000 mls @ 999 mls/hr IV .BOLUS ONE Stop: 07/01/19 16:13 Last Admin: 07/01/19 15:32 Dose: 999 mls/hr Ceftriaxone Sodium 2,000 mg/ (Sodium Chloride) 100 mls @ 200 mls/hr IV ONETIME ONE Stop: 07/01/19 17:46 Last Admin: 07/01/19 17:38 Dose: 200 mls/hr Azithromycin 500 mg/ Sodium (Chloride) 250 mls @ 250 mls/hr IV ONETIME ONE Stop: 07/01/19 18:17 Last Admin: 07/01/19 17:39 Dose: 250 mls/hr Iopamidol (Isovue-370 (76%)) 100 ml IVPUSH ONETIME ONE Stop: 07/01/19 16:27 Last Admin: 07/01/19 16:40 Dose: 100 ml Ketorolac Tromethamine (Toradol) 30 mg IVPUSH ONETIME ONE Stop: 07/01/19 15:14 Last Admin: 07/01/19 15:32 Dose: 30 mg Ketorolac Tromethamine (Toradol) 30 mg IVPUSH Q6H PRN PRN Reason: Pain (moderate 4-6) Last Admin: 07/01/19 22:28 Dose: 30 mg Warfarin Sodium (Coumadin) 10 mg PO ONETIME ONE Stop: 07/01/19 18:16 Last Admin: 07/01/19 20:14 Dose: 10 mg - Exam Quality Assessment: DVT Prophylaxis. No: Supplemental Oxygen, Urine Catheter General: Alert, Oriented, Cooperative, No Acute Distress HEENT: Pupils Equal, EOMI, Mucous Membr. Moist/[place] Neck: No JVD, No Thyromegaly Cardiovascular: Regular Rate, Regular Rhythm, No Murmurs GI/Abdominal Exam: Normal Bowel Sounds, Soft, Non-Tender, No Organomegaly. No: Guarding, Rigid (Male) Exam: Deferred Back Exam: Normal Inspection, Full Range of Motion Extremities: Normal Inspection, No Pedal Edema Skin: Warm, Dry, Intact Neurological: No New Focal Deficit, Normal Gait, Normal Speech Psy/Mental Status: Alert, Normal Affect, Normal Mood Sepsis Event Note - Evaluation Sepsis Screening Result: No Definite Risk - Focused Exam Vital Signs: Vital Signs Temp Pulse Resp BP Pulse Ox 07/02/19 07:48 36.9 C 72 20 120/68 99 Date Exam was Performed: 07/02/19 Time Exam was Performed: 11:48 - Problem List & Annotations (1) Pneumonia SNOMED Code(s): 609290622 Code(s): J18.9 - PNEUMONIA, UNSPECIFIED ORGANISM Status: Acute Current Visit: No Qualifiers: Pneumonia type: due to unspecified organism Laterality: right Lung location: upper lobe of lung Qualified Code(s): J18.9 - Pneumonia, unspecified organism (2) Pulmonary embolism SNOMED Code(s): 81315727 Code(s): I26.99 - OTHER PULMONARY EMBOLISM WITHOUT ACUTE COR PULMONALE Status: Acute Current Visit: No Qualifiers: Pulmonary embolism type: single subsegmental (without acute cor pulmonale) Qualified Code(s): I26.93 - Single subsegmental pulmonary embolism without acute cor pulmonale - Problem List Review Problem List Initiated/Reviewed/Updated: Yes - My Orders Last 24 Hours: My Active Orders 07/02/19 09:50 Ibuprofen [Motrin] 200 mg PO Q8H PRN 07/02/19 11:21 aPTT [PTT,PARTIAL THROMBOPLSTIN TIME] [COAG] Routine - Plan Plan:: This is a 38 y/o Pleasant Male with no significant past medical history, only had Left Knee Debridement a year ago due to infection and C. Diff colitis in 2017. Admitted with PE and Pneumonia Impression and Plan: 1. Pulmonary Embolism: Pt had CT chest that showed Rt upper lobe small PE -He is on Heparin drip and pharmacy is adjusting the dose for Coumadin -Will go home once INR is Therapeutic 2. Right upper Lobe Pneumonia: He is on Azithromycin and Ceftriaxone 3. Smoking: He is active smoker and on Nicotine Patch DVT prophylaxis: He is on Heparin Drip Code status: Full code
[2019-07-02] MEDS ORDERED: Heparin Sodium 5,000 Units/ML Vial IVPUSH ONE (12:19)
[2019-07-02] MEDS: Ibuprofen 200 MG Tab PO PRN ×2 (13:07→21:15)
[2019-07-02] MEDS: Heparin Sodium/0.45% NaCl 25,000 UNITS/500 ML BAG IV SCH (13:37)
[2019-07-02] MEDS ORDERED: Warfarin 5 MG Tab PO ONE (14:00)
[2019-07-02] MEDS ORDERED: Azithromycin 500 MG in Sodium Chloride 0.9% 250 ML IV SCH (18:00)
[2019-07-03] MEDS: Sodium Chloride 0.9% 1,000 ML IV SCH (00:04)
[2019-07-03] MEDS: Heparin Sodium/0.45% NaCl 25,000 UNITS/500 ML BAG IV SCH (06:52)
[2019-07-03 07:58] VITALS: BP 116/70; PULSE 74
[2019-07-03] MEDS: Remove Patch NICOTINE PATCH TRDERM SCH (09:00)
[2019-07-03] MEDS: cefTRIAXone 1 GM in Sodium Chloride 0.9% 50 ML IV SCH (09:04)
[2019-07-03] MEDS: Nicotine 7 MG/24 Hr Patch TRDERM SCH (09:04)
[2019-07-03] MEDS: Sodium Chloride 0.9% 10 ML Syringe FLUSH PRN (09:11)
--- NOTE | 2019-07-03 10:05 | PCM.DCSUM1 ---
Discharge Summary - Hospital Course Free Text/Narrative:: This is a 38 y/o Pleasant Male with no significant past medical history, only had Left Knee Debridement a year ago due to infection and C. Diff colitis in 2017. Admitted with PE and Pneumonia. He was started on Heparin drip and Coumadin. His Coumadin is now therapeutic and will be going home. He will be going to detention from 2019 and his INR will monitored in Longterm by Dr. Rogers but before he gets into detention service need monitor his INR. his INR will be monitored over the weekend at [facility] and pharmacy will dose. From Saturday ( 07/06/19 ) INR will be monitored by his PMD ( Dr. Aguirre) at [facility] [place]. - Discharge Data Discharge Date: 07/03/19 Discharge Disposition: Home, Self-Care 01 Condition: Good - Referral to Home Health Primary Care Physician: Jhonny Fong MD - Discharge Diagnosis/Problem(s) (1) Pneumonia SNOMED Code(s): 633497838 ICD Code: J18.9 - PNEUMONIA, UNSPECIFIED ORGANISM Status: Acute Current Visit: No Qualifiers: Pneumonia type: due to unspecified organism Laterality: right Lung location: upper lobe of lung Qualified Code(s): J18.9 - Pneumonia, unspecified organism (2) Pulmonary embolism SNOMED Code(s): 56019590 ICD Code: I26.99 - OTHER PULMONARY EMBOLISM WITHOUT ACUTE COR PULMONALE Status: Acute Current Visit: No Qualifiers: Pulmonary embolism type: single subsegmental (without acute cor pulmonale) Qualified Code(s): I26.93 - Single subsegmental pulmonary embolism without acute cor pulmonale - Patient Instructions Diet: Usual Diet as Tolerated Activity: As Tolerated Showering/Bathing: May Shower Notify Provider of: Fever, Increased Pain, Swelling and Redness Other/Special Instructions: This is a 38 y/o Pleasant Male with no significant past medical history, only had Left Knee Debridement a year ago due to infection and C. Diff colitis in 2017. Admitted with PE and Pneumonia. He was started on Heparin drip and Coumadin. His Coumadin is now therapeutic and will be going home. He will be going to detention from 2019 and his INR will monitored in Longterm by Dr. Rogers but before he gets into detention service need monitor his INR. his INR will be monitored over the weekend at [facility] and pharmacy will dose. From Saturday ( 07/06/19) INR will be monitored by his PMD ( Dr. Aguirre) at [facility]. The above plan has been discussed with pt and he is agreement with the plan - Discharge Plan *PRESCRIPTION DRUG MONITORING PROGRAM REVIEWED*: No *COPY OF PRESCRIPTION DRUG MONITORING REPORT IN PATIENT VANDANA: No Prescriptions/Med Rec: Cefpodoxime [Vantin] 200 mg PO BID #14 tab Home Medications: Home Meds Acetaminophen [Tylenol] 2 cap PO DAILY PRN 12/16/18 [History] Cefpodoxime [Vantin] 200 mg PO BID #14 tab 07/03/19 [Rx] Patient Handouts: Bleeding Precautions When on Anticoagulant Therapy, Adult, Vitamin K Foods and Warfarin, Warfarin tablets, Prothrombin Time, International Normalized Ratio Test, Pulmonary Embolism Referrals: PCP,Unobtain [Ordering Only Provider] - - Discharge Summary/Plan Comment DC Time >30 min.: Yes Discharge Summary/Plan Comment: This is a 38 y/o Pleasant Male with no significant past medical history, only had Left Knee Debridement a year ago due to infection and C. Diff colitis in 2017. Admitted with PE and Pneumonia Impression and Plan: 1. Pulmonary Embolism: Pt had CT chest that showed Rt upper lobe small PE -He is on Heparin drip and pharmacy is adjusting the dose for Coumadin -Will go home once INR is Therapeutic 2. Right upper Lobe Pneumonia: He is on Azithromycin and Ceftriaxone and will go home on Cefpodoxime for a week course 3. Smoking: He is active smoker and on Nicotine Patch 4. Disposition: He will be going home today and be followed with PMD on Saturday ( ) with labs - General Info Date of Service: 07/03/19 Admission Dx/Problem (Free Text: He is admitted with : Rt lower lobe Pneumonia and Pulmonary Embolism Subjective Update: Pt was seen in room doing well, No nausea or vomiting, No fever or chill, no chest pain or shortness of Breath Functional Status: Reports: Pain Controlled, Tolerating Diet, Ambulating, Urinating - Review of Systems General: Reports: Appetite (Good). Denies: Fever, Chills HEENT: Denies: Dysphasia, Sinus Congestion, Sore Throat, Visual Changes Pulmonary: Denies: Shortness of Breath, Cough, Wheezing Cardiovascular: Denies: Chest Pain, Dyspnea on Exertion, Edema, Lightheadedness Gastrointestinal: Denies: Abdominal Pain, Difficulty Swallowing, Nausea, Vomiting Genitourinary: Denies: Dysuria, Burning, Urgency, Flank Pain Musculoskeletal: Denies: Neck Pain, Shoulder Pain, Foot Pain Skin: Denies: Cyanosis, Jaundice, Bruising, Pruritis, Rash Neurological: Denies: Confusion, Numbness, Tremors Psychiatric: Reports: No Symptoms - Patient Data Vitals - Most Recent: Last Vital Signs Temp 37.0 C 07/03/19 07:58 Pulse 74 07/03/19 07:58 Resp 20 07/03/19 07:58 BP 116/70 07/03/19 07:58 Pulse Ox 98 07/03/19 07:58 Weight - Most Recent: 68.039 kg I&O - Last 24 hours: Intake & Output 07/02/19 07/03/19 07/03/19 22:59 06:59 14:59 Intake Total 1046 1780 Balance 1046 1780 Lab Results - Last 24 hrs: Laboratory Results - last 24 hr 07/02/19 07/02/19 07/02/19 Range/Units 11:21 17:07 23:00 PT (9.0-12.0) SEC INR (0.9-1.2) APTT 44.3 H 51.6 H 57.9 H (22.0-34.0) SEC 07/03/19 Range/Units 06:00 PT 23.5 H D (9.0-12.0) SEC INR 2.4 H (0.9-1.2) APTT 64.6 H (22.0-34.0) SEC SPEEDY Results - Last 24 hrs: Microbiology 07/01/19 15:24 Aerobic Blood Culture - Preliminary Blood - Venous NO GROWTH AFTER 1 DAY Anaerobic Blood Culture - Preliminary NO GROWTH AFTER 1 DAY 07/01/19 15:29 Aerobic Blood Culture - Preliminary Blood - Venous - Lab Draw NO GROWTH AFTER 1 DAY Anaerobic Blood Culture - Preliminary NO GROWTH AFTER 1 DAY Med Orders - Current: Current Medications Acetaminophen (Tylenol) 650 mg PO Q4H PRN PRN Reason: Pain (Mild 1-3)/fever Last Admin: 07/01/19 20:23 Dose: 650 mg Albuterol/Ipratropium (Duoneb 3.0-0.5 Mg/3 Ml) 3 ml NEB Q4H PRN PRN Reason: shortness of breath/wheezing Sodium Chloride (Normal Saline) 1,000 mls @ 125 mls/hr IV ASDIRECTED ALVIN Last Infusion: 07/03/19 09:04 Dose: Infused Azithromycin 500 mg/ Sodium (Chloride) 250 mls @ 250 mls/hr IV Q24H ALVIN Last Infusion: 07/02/19 19:25 Dose: Infused Ceftriaxone Sodium 1 gm/ (Sodium Chloride) 50 mls @ 50 mls/hr IV Q12HR ALVIN Last Admin: 07/03/19 09:04 Dose: 50 mls/hr Ibuprofen (Motrin) 200 mg PO Q8H PRN PRN Reason: Pain Last Admin: 07/02/19 21:15 Dose: 200 mg Miscellaneous Information (Remove Patch) 1 ea TRDERM DAILY [facility] Last Admin: 07/02/19 08:40 Dose: 1 ea Nicotine (Habitrol) 7 mg TRDERM DAILY [facility] Last Admin: 07/03/19 09:04 Dose: Not Given Sodium Chloride (Saline Flush) 10 ml FLUSH ASDIRECTED PRN PRN Reason: Keep Vein Open Last Admin: 07/03/19 09:11 Dose: 10 ml Warfarin Sodium (Pharmacy To Dose - Warfarin) 0 dose PO ASDIRECTED [facility] Warfarin Sodium (Coumadin) 5 mg PO ONETIME ONE Stop: 07/03/19 14:01 Discontinued Medications Heparin Sodium (Porcine) (Heparin Sodium) 4,000 units IVPUSH .BOLUS ONE Stop: 07/01/19 17:15 Last Admin: 07/01/19 17:29 Dose: 5,000 units Heparin Sodium (Porcine) (Heparin Sodium) 1,360 units IVPUSH .BOLUS ONE; Protocol Stop: 07/02/19 12:20 Last Admin: 07/02/19 12:57 Dose: 1,360 units Sodium Chloride (Normal Saline) 1,000 mls @ 999 mls/hr IV .BOLUS ONE Stop: 07/01/19 16:13 Last Admin: 07/01/19 15:32 Dose: 999 mls/hr Heparin Sodium/Sodium Chloride (Heparin 25,000 Units In 1/2 Ns 500 Ml) 25,000 units in 500 mls @ 24.69 mls/hr IV TITRATE ALVIN; Protocol Last Titration: 07/03/19 09:05 Dose: Infused Ceftriaxone Sodium 2,000 mg/ (Sodium Chloride) 100 mls @ 200 mls/hr IV ONETIME ONE Stop: 07/01/19 17:46 Last Admin: 07/01/19 17:38 Dose: 200 mls/hr Azithromycin 500 mg/ Sodium (Chloride) 250 mls @ 250 mls/hr IV ONETIME ONE Stop: 07/01/19 18:17 Last Admin: 07/01/19 17:39 Dose: 250 mls/hr Iopamidol (Isovue-370 (76%)) 100 ml IVPUSH ONETIME ONE Stop: 07/01/19 16:27 Last Admin: 07/01/19 16:40 Dose: 100 ml Ketorolac Tromethamine (Toradol) 30 mg IVPUSH ONETIME ONE Stop: 07/01/19 15:14 Last Admin: 07/01/19 15:32 Dose: 30 mg Ketorolac Tromethamine (Toradol) 30 mg IVPUSH Q6H PRN PRN Reason: Pain (moderate 4-6) Last Admin: 07/01/19 22:28 Dose: 30 mg Warfarin Sodium (Coumadin) 10 mg PO ONETIME ONE Stop: 07/01/19 18:16 Last Admin: 07/01/19 20:14 Dose: 10 mg Warfarin Sodium (Coumadin) 10 mg PO ONETIME ONE Stop: 07/02/19 14:01 Last Admin: 07/02/19 13:40 Dose: 10 mg - Exam Quality Assessment: Reports: DVT Prophylaxis. Denies: Supplemental Oxygen, Urine Catheter General: Reports: Alert, Oriented, Cooperative, No Acute Distress HEENT: Reports: Pupils Equal, EOMI, Mucous Membr. Moist/[place] Neck: Reports: No JVD, No Thyromegaly Lungs: Reports: Clear to Auscultation, Normal Respiratory Effort. Denies: Crackles, Wheezing Cardiovascular: Reports: Regular Rate, Regular Rhythm, No Murmurs GI/Abdominal Exam: Normal Bowel Sounds, Soft, Non-Tender, No Distention (Male) Exam: Deferred Rectal (Males) Exam: Deferred Back Exam: Reports: Normal Inspection, Full Range of Motion Extremities: Normal Inspection, No Pedal Edema Skin: Reports: Warm, Dry, Intact Neurological: Reports: No New Focal Deficit Psy/Mental Status: Reports: Alert, Normal Affect, Normal Mood
[2019-07-03] MEDS: Warfarin 5 MG Tab PO ONE ×2 (10:52→12:14)
== END 2019-07-03 11:00 | disposition home or self-care (01) | DRG 175 ==
LOC: DL.ED 14:44 → DL.MS 17:29
PROVIDERS: ADMIT Internal Medicine; ATTEND Internal Medicine Nephrology
DX: I26.93 Single subsegmental thrombotic pulmonary embolism without acute cor pulmonale (principal); J18.9 Pneumonia, unspecified organism; M19.071 Primary osteoarthritis, right ankle and foot; F17.200 Nicotine dependence, unspecified, uncomplicated; F17.210 Nicotine dependence, cigarettes, uncomplicated; Z79.899 Other long term (current) drug therapy; Z88.5 Allergy status to narcotic agent
CPT/HCPCS: 36415; 71046; 71260; 80053; 80305; 81003; 83605; 85025; 85379; 85610; 87040 ×2; 87804 ×2; J1885; J7030; Q9967; 85730; A9270-GY; J0456; J0696; J1644; J7050

== ENCOUNTER 2020-12-02 15:37 | Emergency (ER) | payer SELFPAY ==
[2020-12-02 16:01] VITALS: BP 124/77; PULSE 88
[2020-12-02] MEDS ORDERED: Aspirin 81 MG Tab.Chew PO ONE (16:06)
--- NOTE | 2020-12-02 16:10 | EDM.PDOC ---
ED HPI GENERAL MEDICAL PROBLEM - General Chief Complaint: Upper Extremity Injury/Pain Stated Complaint: WOKE UP HEARTBURN, LEFT ARM NOW HURTS Time Seen by Provider: 12/02/20 16:10 Source of Information: Reports: Patient, RN History Limitations: Reports: No Limitations - History of Present Illness INITIAL COMMENTS - FREE TEXT/NARRATIVE: ED with c/o waking with heartburn this am, and feeling SOB. 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 Searched internet for cause and said may be chest pain and got worried . Tried clinic but told no appointments and to go to ED. No report of fever chills or cough. Remote hx blood clts to lungs with pneumonia. No vomiting. Left Upper Arm Pain Score (Numeric/FACES): 2 - Related Data Allergies Allergy/AdvReac Type Severity Reaction Status Date / Time codeine Allergy Rash Verified 12/02/20 16:01 hydrocodone Allergy Hives Verified 12/02/20 16:01 Home Meds: Home Meds Acetaminophen [Tylenol] 2 cap PO DAILY PRN 12/16/18 [History] Past Medical History - Past Health History Medical/Surgical History: Denies Medical/Surgical History HEENT History: Reports: None Cardiovascular History: Reports: None Respiratory History: Reports: PE Other Respiratory History: [id number] Gastrointestinal History: Reports: Other (See Below) Other Gastrointestinal History: Had c diff in 2017, hx of colitis Genitourinary History: Reports: None Musculoskeletal History: Reports: Arthritis, Other (See Below) Other Musculoskeletal History: patient states arthritis in toes on right foot Neurological History: Reports: None Psychiatric History: Reports: Addiction Other Psychiatric History: States he quit drugs x 1 year Endocrine/Metabolic History: Reports: None Hematologic History: Reports: None Immunologic History: Reports: None Oncologic (Cancer) History: Reports: None Dermatologic History: Reports: None - Infectious Disease History Infectious Disease History: Reports: Chicken Pox, Influenza - Past Surgical History Head Surgeries/Procedures: Reports: None Musculoskeletal Surgical History: Reports: Other (See Below) Other Musculoskeletal Surgeries/Procedures:: left knee 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 Social & Family History - Family History Family Medical History: No Pertinent Family History - Tobacco Use Tobacco Use Status *Q: Current Every Day Tobacco User Years of Tobacco use: 25 Packs/Tins Daily: 0.5 Second Hand Smoke Exposure: No - Caffeine Use Caffeine Use: Reports: Coffee, Energy Drinks, Soda - Recreational Drug Use Recreational Drug Use: Yes Recreational Drug Type: Reports: Marijuana/Hashish - Living Situation & Occupation Living situation: Reports: , with Family Review of Systems - Review of Systems Review Of Systems: Comprehensive ROS is negative, except as noted in HPI. ED EXAM, GENERAL - Physical Exam Exam: See Below Exam Limited By: No Limitations General Appearance: Alert, No Apparent Distress, Anxious, Thin Ears: Normal External Exam, Hearing Grossly Normal Nose: Normal Inspection Throat/Mouth: Normal Lips, Normal Voice Neck: Full Range of Motion Respiratory/Chest: No Respiratory Distress, Lungs Clear, Normal Breath Sounds Cardiovascular: Regular Rate, Rhythm GI/Abdominal: Normal Bowel Sounds, Soft, Non-Tender Extremities: Normal Inspection, Normal Range of Motion Neurological: Alert, Oriented, Normal Cognition, Abnormal Reflexes Psychiatric: Anxious Skin Exam: Warm, Dry, Intact, Normal Color, Tattoo(s) #1 Interpretation EKG Date: 12/02/20 Time: 15:56 Rhythm: NSR [place]: Normal P-Wave: Present QRS: Normal ST-T: Normal QT: Normal Comparison: NA - No Prior EKG Course - Vital Signs Last Recorded V/S: Last Vital Signs Temp 97.4 F 12/02/20 15:54 Pulse 88 12/02/20 15:54 Resp 16 12/02/20 15:54 BP 124/77 12/02/20 15:54 Pulse Ox 100 12/02/20 15:54 - Orders/Labs/Meds Orders: Active Orders 24 hr Category Date Time Status DRUG SCREEN URINE BIORAD [URCHEM] Stat Lab 12/02/20 16:04 Ordered UA RFX SPEEDY AND CULT IF INDIC [URIN] Stat Lab 12/02/20 16:04 Ordered Labs: Laboratory Tests 12/02/20 12/02/20 12/02/20 Range/Units 16:19 16:19 16:19 WBC 4.8 L (5.0-10.0) 10^3/uL RBC 5.08 (4.6-6.2) 10^6/uL Hgb 14.4 D (14.0-18.0) g/dL Hct 43.3 (40.0-54.0) % MCV 85.2 (80-100) fL MCH 28.3 (27.0-34.0) pg MCHC 33.3 (33.0-35.0) g/dL Plt Count 305 D (150-450) 10^3/uL Neut % (Auto) 56.0 (42.2-75.2) % Lymph % (Auto) 31.0 (20.5-50.1) % Hand % (Auto) 8.7 H (2-8) % Eos % (Auto) 3.7 H (1.0-3.0) % Baso % (Auto) 0.6 (0.0-1.0) % PT (9.0-12.0) SEC INR (0.9-1.2) D-Dimer, Quantitative < 100 (0-400) ng/mL Sodium 140 (136-145) mmol/L Potassium 4.0 (3.5-5.1) mmol/L Chloride 101 (98-107) mmol/L Carbon Dioxide 32 (21-32) mmol/L Anion Gap 11.0 (7-13) mEq/L BUN 16 (7-18) mg/dL Creatinine 0.97 (0.70-1.30) mg/dL Est Cr Clr Drug Dosing 96.12 mL/min Estimated GFR (MDRD) > 60 BUN/Creatinine Ratio 16.5 (No establ ref range) Glucose 67 L (70-99) mg/dL Lactic Acid (0.4-2.0) mmol/L Calcium 9.1 (8.5-10.1) mg/dL Total Bilirubin 0.3 (0.2-1.0) mg/dL AST 17 (15-37) U/L ALT 23 (16-63) U/L Alkaline Phosphatase 139 H (46-116) U/L Troponin I < 0.017 (0.000-0.056) ng/mL C-Reactive Protein < 0.2 (0.0-0.9) mg/dL Total Protein 7.4 (6.4-8.2) g/dL Albumin 4.0 (3.4-5.0) g/dL Globulin 3.4 Albumin/Globulin Ratio 1.2 Ethyl Alcohol < 3 (0) mg/dL 12/02/20 12/02/20 Range/Units 16:19 16:19 WBC (5.0-10.0) 10^3/uL RBC (4.6-6.2) 10^6/uL Hgb (14.0-18.0) g/dL Hct (40.0-54.0) % MCV (80-100) fL MCH (27.0-34.0) pg MCHC (33.0-35.0) g/dL Plt Count (150-450) 10^3/uL Neut % (Auto) (42.2-75.2) % Lymph % (Auto) (20.5-50.1) % Hand % (Auto) (2-8) % Eos % (Auto) (1.0-3.0) % Baso % (Auto) (0.0-1.0) % PT 10.6 D (9.0-12.0) SEC INR 1.1 (0.9-1.2) D-Dimer, Quantitative (0-400) ng/mL Sodium (136-145) mmol/L Potassium (3.5-5.1) mmol/L Chloride (98-107) mmol/L Carbon Dioxide (21-32) mmol/L Anion Gap (7-13) mEq/L BUN (7-18) mg/dL Creatinine (0.70-1.30) mg/dL Est Cr Clr Drug Dosing mL/min Estimated GFR (MDRD) BUN/Creatinine Ratio (No establ ref range) Glucose (70-99) mg/dL Lactic Acid 1.0 (0.4-2.0) mmol/L Calcium (8.5-10.1) mg/dL Total Bilirubin (0.2-1.0) mg/dL AST (15-37) U/L ALT (16-63) U/L Alkaline Phosphatase (46-116) U/L Troponin I (0.000-0.056) ng/mL C-Reactive Protein (0.0-0.9) mg/dL Total Protein (6.4-8.2) g/dL Albumin (3.4-5.0) g/dL Globulin Albumin/Globulin Ratio Ethyl Alcohol (0) mg/dL Meds: Medications Discontinued Medications Generic Name Dose Route Start Last Admin Trade Name Freq PRN Reason Stop Dose Admin Aspirin 324 mg 12/02/20 16:06 12/02/20 16:12 Aspirin 81 Mg Tab.Chew PO 12/02/20 16:07 324 mg ONETIME ONE Administration Departure - Departure Time of Disposition: 16:56 Disposition: Home, Self-Care 01 Condition: Good Clinical Impression: GERD (gastroesophageal reflux disease), Anxiety about health, Tobacco dependence - Discharge Information *PRESCRIPTION DRUG MONITORING PROGRAM REVIEWED*: No *COPY OF PRESCRIPTION DRUG MONITORING REPORT IN PATIENT VANDANA: No Instructions: Smoking Tobacco Information, Adult, Gastroesophageal Reflux Disease, Adult, [id number] Referrals: Nasir Brice PA-C [Primary Care Provider] - Forms: ED Department Discharge Additional Instructions: bland diet avoid spicy foods decrease or stop smoking recheck clinic one week follow up sooner if difficulty breathing severe chest pain, nausea/ vomiting Sepsis Event Note (ED) - Evaluation Sepsis Screening Result: No Definite Risk - Focused Exam Vital Signs: Vital Signs Temp Pulse Resp BP Pulse Ox 12/02/20 15:54 97.4 F 88 16 124/77 100 - My Orders Last 24 Hours: My Active Orders 12/02/20 16:04 DRUG SCREEN URINE BIORAD [URCHEM] Stat UA RFX SPEEDY AND CULT IF INDIC [URIN] Stat - Assessment/Plan Last 24 Hours: My Active Orders 12/02/20 16:04 DRUG SCREEN URINE BIORAD [URCHEM] Stat UA RFX SPEEDY AND CULT IF INDIC [URIN] Stat
--- NOTE | 2020-12-02 16:38 | CR ---
PROCEDURE INFORMATION: Exam: XR Chest Exam date and time: 12/02/2020 4:15 PM Age: 40 years old Clinical indication: Other: SOB left arm pain TECHNIQUE: Imaging protocol: XR of the chest. Views: 1 view. COMPARISON: CT Chest w Cont, Chest w Cont 07/01/2019 4:52 PM FINDINGS: Lungs: Unremarkable. No consolidation. Pleural spaces: Unremarkable. No pleural effusion. No pneumothorax. Heart/Mediastinum: Unremarkable. No cardiomegaly. Bones/joints: Unremarkable. IMPRESSION: No acute findings.
[2020-12-02 16:46] LABS: CHLORIDE,CL 101 mmol/L (98-107); SODIUM,NA 140 mmol/L (136-145)
== END 2020-12-02 17:01 | disposition home or self-care (01) ==
LOC: DL.ED 15:37
DX: K21.9 Gastro-esophageal reflux disease without esophagitis (principal); F41.9 Anxiety disorder, unspecified; F17.200 Nicotine dependence, unspecified, uncomplicated; Z88.5 Allergy status to narcotic agent
CPT/HCPCS: 36415; 71045; 80053; 80307; 83605; 84484; 85025; 85379; 85610; 86140; 93005; 99285; A9270

== ENCOUNTER 2022-10-11 00:01 | Emergency (ER) | payer MEDICAID ==
[2022-10-11 00:14] VITALS: PULSE 106
[2022-10-11 00:31] VITALS: BP 137/90
== END 2022-10-11 00:40 | disposition home or self-care (01) ==
LOC: DL.ED 00:01
DX: S63.104A Unspecified dislocation of right thumb, initial encounter (principal); Z88.5 Allergy status to narcotic agent; W22.8XXA Striking against or struck by other objects, initial encounter; Y93.H9 Activity, other involving exterior property and land maintenance, building and construction
CPT/HCPCS: 28660; 73140-F5; 99283

== ENCOUNTER 2024-05-30 10:03 | Emergency (ER) | payer SELFPAY ==
[2024-05-30 10:11] VITALS: PULSE 99
[2024-05-30] MEDS: Albuterol/Ipratropium 3.0-0.5 MG/3 ML Neb Soln NEB ONE (10:26)
[2024-05-30] MEDS: Dexamethasone 4 MG/ML SDV PO ONE (10:26)
[2024-05-30 10:43] VITALS: BP 131/90
[2024-05-30] MEDS: Albuterol 6.7 GM Inhaler INH ONE (10:51)
[2024-05-30] MEDS: Doxycycline Monohydrate 100 MG Cap PO ONE (10:59)
[2024-05-30] MEDS: Take Home: predniSONE 20 MG, 4 Tab Pack PO ONE (11:02)
[2024-05-30] MEDS: Take Home: Doxycycline 100 MG Cap, 4 Cap Pack PO ONE (11:02)
== END 2024-05-30 11:09 | disposition home or self-care (01) ==
LOC: DL.ED 10:03
DX: J40 Bronchitis, not specified as acute or chronic (principal); K21.9 Gastro-esophageal reflux disease without esophagitis; Z88.5 Allergy status to narcotic agent; Z79.899 Other long term (current) drug therapy
CPT/HCPCS: 71045; 94640; 99285; A9270; J1100; 99283; J7620-GY